=== PATIENT | female | born 1935 | race Caucasian/White ===

== ENCOUNTER 2023-09-09 16:27 | Inpatient (IN) | payer MEDICARE, OTHER, SELFPAY ==
--- NOTE | ~2023-09-09 | XR_ITS ---
EXAMINATION: XR BILATERAL HIPS WITH AP PELVIS CLINICAL INFORMATION: Unwitnessed fall, pain COMPARISON: None available. TECHNIQUE: AP view of the pelvis and single views of each hip were obtained. FINDINGS: No fracture. Hip joint spaces are maintained. Alignment is anatomic. Sacroiliac joints and pubic symphysis are normal. No abnormal soft tissue calcifications. XR/XR hips ALEXANDRA min 3V IMPRESSION: Normal pelvis and hips.
--- NOTE | ~2023-09-09 | CT_ITS ---
EXAMINATION: CT HEAD WITHOUT CONTRAST CLINICAL INFORMATION: Unwitnessed fall. COMPARISON: None. TECHNIQUE: Contiguous axial imaging was performed from the skullbase to vertex without intravenous administration of contrast. This CT examination was performed using dose optimization techniques as appropriate, variously including the following: *Automated exposure control *Adjustment of mA and/or kV according to patient size (this includes techniques or standardized protocols for targeted exams where dose is matched to indication/reason for exam; i.e. extremities or head) *Use of iterative reconstruction technique DLP: 755 mGy-cm. FINDINGS: There is no evidence of acute intracranial hemorrhage or territorial infarction. No abnormal mass effect or midline shift is seen. Morse to white matter differentiation is well preserved. No extra-axial fluid collections are identified. Moderate diffuse brain parenchymal volume loss is noted with commensurate ex vacuo dilatation of the ventricles. Mild chronic small vessel ischemic changes visible. The osseous structures and soft tissues are normal. The mastoid air cells and visualized portions of the paranasal sinuses are well aerated. CT/CT head/brain wo IV con IMPRESSION: No acute intracranial pathology. Moderate diffuse brain parenchymal volume loss and mild chronic white matter microangiopathy.
[2023-09-09 16:55] VITALS: BP 169/75; PULSE 99; RESP 20; TEMP 36.8; O2SAT 99
[2023-09-09 17:57] VITALS: BMI 21.9
[2023-09-09] MEDS: Divalproex Sodium 500 MG TABLET.DR PO (20:15)
[2023-09-09] MEDS: traZODone HCL 50 MG TABLET PO (20:15)
[2023-09-09] MEDS: Atorvastatin Calcium 20 MG TABLET PO (20:15)
[2023-09-09] MEDS: busPIRone HCl 5 MG TABLET PO (20:15)
[2023-09-09] MEDS: Sennosides 8.6 MG TABLET 17.2 MG PO (20:15)
[2023-09-09] MEDS: Mirtazapine 7.5 MG TABLET PO (20:15)
[2023-09-09 20:43] LABS: Creatinine Clr Calc Pharmacy 34.1; Estimated Glomerular Filt Rate 54
[2023-09-09] MEDS: cephALEXin 500 MG CAPSULE PO (21:57)
[2023-09-10] MEDS: hydrOXYzine HCL 25 MG TABLET PO (00:30)
[2023-09-10] MEDS: Omeprazole 20 MG CAPSULE.DR PO (06:12)
[2023-09-10] MEDS: cephALEXin 500 MG CAPSULE PO ×2 (06:17→17:27)
[2023-09-10 08:33] LABS: Alanine Aminotransferase 26 U/L (0-31); Albumin Level 3.7 g/dL (3.5-5.0); Alkaline Phosphatase 54 U/L (39-117); Anion Gap 14 (12-20); Aspartate Amino Transferase 31 U/L (5-31); Bilirubin Total 0.8 mg/dL (0.0-1.0); Blood Urea Nitrogen 22 mg/dL (9-16); Calcium 8.8 mg/dL (8.4-10.2); Carbon Dioxide 19 mmol/L (22-29); Chloride 112 mmol/L (96-108); Cholesterol 160 mg/dL (<200); Creatinine Clr Calc Pharmacy 34.4; Estimated Glomerular Filt Rate 54; Glucose Fasting 121 mg/dL (60-99); HDL Cholesterol 49 mg/dL (>40); LDL Cholesterol Calculated 86 mg/dL (<100); Potassium 3.7 mmol/L (3.3-5.1); Sodium 141 mmol/L (135-145); Total Protein 6.4 g/dL (6.5-8.0); Triglycerides 126 mg/dL (<150)
--- NOTE | 2023-09-10 11:29 | HO.PM.IMCN ---
History of Present Illness Data of Consult Service Date: 09/10/23 Primary Care Provider: Nonstaff Physician HPI Reason for consult: Admission H&P Pt is an 87-year-old female with a PMH significant for?unspecified dementia with behavioral disturbances who is admitted to [facility] for increased agitation. Patient comes from [facility] where she apparently eloped from her unit and was throwing supplies from a nursing cart. Originally brought to the ED at [facility] where she needed to be chemically and physically restrained due to agitation and aggressive behavior. In the ED patient workup was positive for UTI. Medical consult for admission H&P. Pt is alert and oriented to person only and incapable of providing accurate HPI. When asked if she had any medical complaints she said she had and accident with my baby that is getting worse, but will fix itself . Review of Systems Review of Systems: Unable to obtain due to patient's mentation [facility] Medical History (Updated 09/10/23 @ 13:27 by LANNY Olivera) Dementia, unspecified, with behavioral disturbance Social History Household Members: Unknown / Unable to assess Housing: Assisted Living Facility Do you presently have visiting nurse or other home services: Yes Patient Tobacco Use Status: Tobacco use Unknown Smoked in Last 30 Days: No Patient Interested in Nicotine Replacement: No Patient Given Instructions on How to Stop Smoking: No Second Hand Smoke Exposure: No Use of substances other than those prescribed or required for medical reasons: Unknown Last Used Substance: Unknown Currently Displaying Signs/Symptoms of Drug Intoxication Withdrawal: No Any prior treatment program specific to substance use: No Do you feel safe in your current relationship?: No Advance Directives: Yes Advance Directives Information Provided: No Advance Directives on File: Yes Advance Directives Date on File: 09/09/23 Do you have thoughts of harming others: None Do you have a plan to hurt others: No Plan Recently lost weight without trying: Unsure How much weight loss: Unsure Eating poorly because of decreased appetite: No Nutrition screen score: 4 Nutrition Risks: No Nutritional Risk Patient : No : No Poor oral hygiene: No Meds Allergies Allergy/AdvReac Type Severity Reaction Status Date / Time No Known Allergies Allergy Verified 09/09/23 17:46 Active Medications: Current Medications Acetaminophen (Acetaminophen 325 Mg Tablet) 650 mg PO Q6H PRN PRN Reason: Headache/Pain Mild Scale (1-3) Al Hydroxide/Mg Hydroxide (Magnesium Hydrox/Alum Hydrox 30 Ml Oral.Susp) 30 ml PO Q6H PRN PRN Reason: Heartburn/Nausea Atorvastatin Calcium (Atorvastatin Calcium 20 Mg Tablet) 20 mg PO BEDTIME [facility] Last Admin: 09/09/23 20:15 Dose: 20 mg Buspirone HCl (Buspirone Hcl 5 Mg Tablet) 5 mg PO TID [facility] Last Admin: 09/09/23 20:15 Dose: 5 mg Cephalexin HCl (Cephalexin 500 Mg Capsule) 500 mg PO Q8H [facility] Last Admin: 09/10/23 06:17 Dose: 500 mg Divalproex Sodium (Divalproex Sodium 500 Mg Tablet.) 500 mg PO BID [facility] Last Admin: 09/09/23 20:15 Dose: 500 mg Donepezil HCl (Donepezil Hcl 10 Mg Tablet) 10 mg PO DAILY [facility] Escitalopram Oxalate (Escitalopram Oxalate 5 Mg Tablet) 5 mg PO DAILY [facility] Hydroxyzine HCl (Hydroxyzine Hcl 25 Mg Tablet) 25 mg PO Q6H PRN PRN Reason: Anxiety Last Admin: 09/10/23 00:30 Dose: 25 mg Magnesium Hydroxide (Milk Of Magnesia 30 Ml Oral.Susp) 30 ml PO DAILY PRN PRN Reason: Constipation Mirtazapine (Mirtazapine 7.5 Mg Tablet) 7.5 mg PO BEDTIME [facility] Last Admin: 09/09/23 20:15 Dose: 7.5 mg Omeprazole (Omeprazole 20 Mg Capsule.) 20 mg PO DAILY@0630 [facility] Last Admin: 09/10/23 06:12 Dose: 20 mg Senna (Sennosides 8.6 Mg Tablet) 17.2 mg PO BEDTIME [facility] Last Admin: 09/09/23 20:15 Dose: 17.2 mg Tramadol HCl (Tramadol Hcl 50 Mg Tablet) 50 mg PO Q6H PRN PRN Reason: Pain, Moderate(Pain Scale 4-6) Trazodone HCl (Trazodone Hcl 50 Mg Tablet) 50 mg PO BEDTIME MRX1 PRN PRN Reason: Insomnia Last Admin: 09/09/23 20:15 Dose: 50 mg Physical Exam Vital Signs and Narrative: Vital Signs: Last Vital Signs Temp 98.2 F 09/09/23 16:55 Pulse 99 09/09/23 16:55 Resp 20 09/09/23 16:55 BP 169/75 H 09/09/23 16:55 Pulse Ox 99 09/09/23 16:55 O2 Del Method Room Air 09/09/23 16:55 BMI result Body Mass Index 21.9 General: AOx1, frail-looking, in wheelchair, in no acute distress Resp: CTA bilaterally CVS: S1, S2, RRR GI: +BS, NT, no distention Skin: Warm, dry. Areas of ecchymosis noted on hands and forearms bilaterally. Neuro: Cranial nerves II-XII grossly intact bilaterally. Motor grossly intact bilaterally. Global weakness noted, especially in lower extremities. Extremities: No edema Psych: Pleasantly confused Results Labs 09/10/23 07:48 Labs: Laboratory Results - last 24 hr 09/09/23 09/10/23 20:27 07:48 Anion Gap 14 Estim Creat Clear Calc 34.1 34.4 Estimated GFR 54 54 Fasting Glucose 121 H Calcium 8.8 Total Bilirubin 0.8 AST 31 ALT 26 Alkaline Phosphatase 54 Total Protein 6.4 L Albumin 3.7 Triglycerides 126 Cholesterol 160 LDL Cholesterol, Calc 86 HDL Cholesterol 49 Assessment and Plan (1) Medical clearance for psychiatric admission: Status: Acute Plan Pt is an 87-year-old female with a PMH significant for?unspecified dementia with behavioral disturbances who is admitted to [facility] for increased agitation. Patient comes from [facility] where she apparently eloped from her unit and was throwing supplies from a nursing cart. Originally brought to the ED at [facility] where she needed to be chemically and physically restrained due to agitation and aggressive behavior. In the ED patient workup was positive for UTI. Medical consult for admission H&P. Pt is alert and oriented to person only and incapable of providing accurate HPI. Mood disorder Plan as per psychiatry UTI UA positive for UTI at [facility] Thank you for allowing us to participate in the care of this patient. Signing off at this time. Please re-consult if any acute complaints or issues arise.
[2023-09-10 11:45] VITALS: BP 152/67; PULSE 64; RESP 18; TEMP 35.9; O2SAT 98
[2023-09-10] MEDS: Escitalopram Oxalate 5 MG TABLET PO (11:53)
[2023-09-10] MEDS: Divalproex Sodium 500 MG TABLET.DR PO ×2 (11:53→20:24)
[2023-09-10] MEDS: Donepezil HCl 10 MG TABLET PO (11:53)
[2023-09-10] MEDS: busPIRone HCl 5 MG TABLET PO ×3 (11:53→20:24)
--- NOTE | 2023-09-10 12:24 | PC.ADMIT ---
Late entry from 09/09/23 pt arrived on unit via stretcher at 1650. Place on 12B by Dr Alex. Patient alert to self only, dressed in hospital attire. Appears stated age and well groomed. Anxious affect/grossly confused. Admitting diagnosis is Hx of dementia with increased agitation. Precipitating evenat at nursing facilty was increased agitation, attempting to elope and throwing nursing supplies. Pt son reports patient has been declining for the past year. On admission patient presented as anxious but cooperative. skin check done. VSS. Patient change into clean johnnies. placed on 1:1 for safety and bed alarm on.
[2023-09-10] MEDS: Acetaminophen 325 MG TABLET 650 MG PO (16:51)
[2023-09-10 19:30] VITALS: BP 147/67; PULSE 81; RESP 17; TEMP 36.4; O2SAT 96
[2023-09-10] MEDS: Mirtazapine 7.5 MG TABLET PO (20:24)
[2023-09-10] MEDS: Atorvastatin Calcium 20 MG TABLET PO (20:24)
[2023-09-10] MEDS: traZODone HCL 50 MG TABLET PO (20:24)
[2023-09-10] MEDS: Sennosides 8.6 MG TABLET 17.2 MG PO (20:24)
--- NOTE | 2023-09-10 21:33 | HO.PSYADMNOT ---
HPI Date of Service: 09/10/23 Chief Complaint: Unspecified anxiety disorder Sources of Information: patient interviewed, chart reviewed and crisis/core team assessment reviewed HPI Subjective Notes: Section 12B Narrative: Patient is an 87 year old female with history of dementia, no prior MH issues noted, who was transported from [facility] for IP admission. Per initial assessment, patient has been living at intermediate [facility] for the past year. She was sent to ER due worsening agitation and emotional lability, had been hostile toward staff throwing items at them and had absconded from her unit. She is noted to have recently been started on citalopram 10 mg for behavioral changes, but unclear when this was. She had an initial medical work-up in the ED with a largely unremarkable physical examination and lab work CBC, BMP significant for elevated BUN 28, creatinine 1.4 and Cl 111, and low bicarb 18 as well as anemia 10.7/ 32.0 and was started on Keflex for UTI. She was also noted to have experienced increased agitation when she first arrived at [facility] ED, threatening to bite staff and hitting staff, ripping things off wall, not redirectable and required chemical and physical restraints until she could be evaluated for possible [facility] admission. She has not been able to provide much history, it was noted that she currently has 4 children, and her son Edison is involved in her care. Patient seen this morning, she's on a 1:1 with sitter present. Appears in no acute distress, lying comfortably in bed. Is alert and oriented to self. Denies any pain issues. Says she does not know what is happening. Reports mood as I cant tell and when asked about how she slet last night says I just laid on the ground but in fact was in bed all night asleep. She denies any pain issues. She was pleasant but confused and unable to provide much history. Medical Evaluation Reviewed: Hospitalist Severino Pending [facility] Medical History (Updated 09/13/23 @ 06:53 by Lesa Leiva MD) Dementia, unspecified, with behavioral disturbance Narrative: Family History: unable to obtain Social History: unable to obtain Substance History: unable to obtain Trauma History: unable to obtain Diagnostics Vital Signs (24Hr): Vital Signs - 24 hr 09/10/23 11:45 09/10/23 19:30 Temperature 96.6 F L 97.6 F Pulse Rate 64 81 Respiratory Rate 18 17 Blood Pressure 152/67 H 147/67 H Pulse Oximetry 98 96 Oxygen Delivery Method Room Air Room Air BMI result Body Mass Index 21.9 Labs 09/10/23 07:48 Labs: Laboratory Results - last 48 hr 09/09/23 09/10/23 20:27 07:48 Sodium 141 Potassium 3.7 Chloride 112 H Carbon Dioxide 19 L Anion Gap 14 BUN 22 H Creatinine 0.98 0.97 Estim Creat Clear Calc 34.1 34.4 Estimated GFR 54 54 Fasting Glucose 121 H Calcium 8.8 Total Bilirubin 0.8 AST 31 ALT 26 Alkaline Phosphatase 54 Total Protein 6.4 L Albumin 3.7 Triglycerides 126 Cholesterol 160 LDL Cholesterol, Calc 86 HDL Cholesterol 49 Meds/Allergies Allergies Allergies Allergy/AdvReac Type Severity Reaction Status Date / Time No Known Allergies Allergy Verified 09/09/23 17:46 Assessment & Plan Assessment & Plan (1) Anxiety state, unspecified: Status: Acute Code(s): F41.1 - Generalized anxiety disorder (2) Dementia, unspecified, with behavioral disturbance: Status: Acute Code(s): F03.918 - Unspecified dementia, unspecified severity, with other behavioral disturbance (3) Medical clearance for psychiatric admission: Status: Acute Code(s): Z00.8 - Encounter for other general examination Plan 1. Continue to gather collateral information we will try to gather information from the facility and her sister. 2. Continue with medication reconciliation antidepressants. 3. Will need a medical workup 4. The patient is able to contract for safety so 15 minutes checks. 5. Reassessment with results Patient educated on: diagnosis Reason for continued inpatient stay Substantial Risk for: inability to function, rapid decompensation and med/psych decompensation Statement Statement: I have reviewed the history and physical and performed a pertinent examination on my patient. No changes have occurred unless specified. If the History and Physical was not performed prior to admission, the Hospitalist's service will be consulted for completing the admission physical. Time Spent With Patient Time: Total time managing care of this patient today ____ minutes.
[2023-09-11] MEDS: Omeprazole 20 MG CAPSULE.DR PO (05:40)
[2023-09-11] MEDS: cephALEXin 500 MG CAPSULE PO ×2 (05:40→18:28)
[2023-09-11 12:14] VITALS: BP 138/65; PULSE 72; RESP 20; TEMP 36.1; O2SAT 94
[2023-09-11] MEDS: Donepezil HCl 10 MG TABLET PO (12:16)
[2023-09-11] MEDS: busPIRone HCl 5 MG TABLET PO ×3 (12:16→20:36)
[2023-09-11] MEDS: Escitalopram Oxalate 5 MG TABLET PO (12:16)
[2023-09-11] MEDS: OLANZapine ODT 10 MG TAB.RAPDIS 5 MG TRANSLINGU ×2 (14:21→18:28)
[2023-09-11 18:00] VITALS: BP 144/68; PULSE 62; RESP 18; TEMP 36.1; O2SAT 96
[2023-09-11] MEDS: hydrOXYzine HCL 25 MG TABLET PO (20:35)
[2023-09-11] MEDS: Divalproex Sodium Sprinkles 125 MG CAP.DR.SPR 500 MG PO (20:36)
[2023-09-11] MEDS: Atorvastatin Calcium 20 MG TABLET PO (20:36)
[2023-09-11] MEDS: Sennosides 8.6 MG TABLET 17.2 MG PO (20:36)
[2023-09-11] MEDS: Mirtazapine 7.5 MG TABLET PO (20:36)
[2023-09-11] MEDS: traZODone HCL 50 MG TABLET PO (20:36)
--- NOTE | 2023-09-11 23:31 | HO.PSYCHPN ---
Subjective Subjective Date of Service: 09/11/23 Reason For Visit: Unspecified anxiety disorder Subjective Notes: Section 12B Healthcare Proxy: Yes Interim History: Met with patient. Reviewed with nursing staff. Patient had been agitated earlier this morning. She was found lying in bed awake. She had been given a doll this morning which apparently helped with the outburst and was currently cradling it. She reports she is pretty good this morning. She is lying calmly, appears comfortable. She denies any issues, but says until someone showed up and was telling me what to do . Pleasant but confused. Could not answer most questions. Oriented to self only. Medication Compliance: Yes Side effects from medications: No Review of Systems Acute medical concerns: No Review of Systems Review of Systems Unable to obtain due to patient's mentation Mental Status Exam Mental Status Exam Narrative: Patient Appearance: Appropriate Patient Orientation: Person Level of Consciousness: Awake, Alert Patient Behavior: Guarded and Passive, agitated Mood Description: alexithymic Affect Description: Constricted Patient Cognition Impaired: Yes Ability to Follow Directions: Fair Speech Pattern: Clear Hallucinations: None Delusions: Not Present Thought Process: Distracted and Slowed Thinking Thought Content: positive for [place] and positive for Poverty of Content Judgment: limited Diagnostics Vital Signs (24Hr): Vital Signs - 24 hr 09/11/23 12:14 09/11/23 18:00 Temperature 97.0 F 97 F Pulse Rate 72 62 Respiratory Rate 20 18 Blood Pressure 138/65 144/68 H Pulse Oximetry 94 96 Oxygen Delivery Method Room Air Room Air BMI result Body Mass Index 21.9 Labs 09/10/23 07:48 Labs: Laboratory Results - last 48 hr 09/10/23 07:48 Sodium 141 Potassium 3.7 Chloride 112 H Carbon Dioxide 19 L Anion Gap 14 BUN 22 H Creatinine 0.97 Estim Creat Clear Calc 34.4 Estimated GFR 54 Fasting Glucose 121 H Calcium 8.8 Total Bilirubin 0.8 AST 31 ALT 26 Alkaline Phosphatase 54 Total Protein 6.4 L Albumin 3.7 Triglycerides 126 Cholesterol 160 LDL Cholesterol, Calc 86 HDL Cholesterol 49 Medications Medications Current Medications Acetaminophen (Acetaminophen 325 Mg Tablet) 650 mg PO Q6H PRN PRN Reason: Headache/Pain Mild Scale (1-3) Last Admin: 09/10/23 16:51 Dose: 650 mg Al Hydroxide/Mg Hydroxide (Magnesium Hydrox/Alum Hydrox 30 Ml Oral.Susp) 30 ml PO Q6H PRN PRN Reason: Heartburn/Nausea Atorvastatin Calcium (Atorvastatin Calcium 20 Mg Tablet) 20 mg PO BEDTIME [facility] Last Admin: 09/11/23 20:36 Dose: 20 mg Buspirone HCl (Buspirone Hcl 5 Mg Tablet) 5 mg PO TID [facility] Last Admin: 09/11/23 20:36 Dose: 5 mg Cephalexin HCl (Cephalexin 500 Mg Capsule) 500 mg PO Q12H [facility] Last Admin: 09/11/23 18:28 Dose: 500 mg Divalproex Sodium (Divalproex Sodium Sprinkles 125 Mg Cap.Spr) 500 mg PO BID [facility] Last Admin: 09/11/23 20:36 Dose: 500 mg Donepezil HCl (Donepezil Hcl 10 Mg Tablet) 10 mg PO DAILY [facility] Last Admin: 09/11/23 12:16 Dose: 10 mg Escitalopram Oxalate (Escitalopram Oxalate 5 Mg Tablet) 5 mg PO DAILY [facility] Last Admin: 09/11/23 12:16 Dose: 5 mg Hydroxyzine HCl (Hydroxyzine Hcl 25 Mg Tablet) 25 mg PO Q6H PRN PRN Reason: Anxiety Last Admin: 09/11/23 20:35 Dose: 25 mg Magnesium Hydroxide (Milk Of Magnesia 30 Ml Oral.Susp) 30 ml PO DAILY PRN PRN Reason: Constipation Melatonin (Melatonin 3 Mg Tablet) 6 mg PO BEDTIME PRN PRN Reason: Sleep Mirtazapine (Mirtazapine 7.5 Mg Tablet) 7.5 mg PO BEDTIME [facility] Last Admin: 09/11/23 20:36 Dose: 7.5 mg Olanzapine (Olanzapine Odt 10 Mg Tab.Rapdis) 5 mg TRANSLINGU BID PRN PRN Reason: anxiety/restlessness Last Admin: 09/11/23 18:28 Dose: 5 mg Omeprazole (Omeprazole 20 Mg Capsule.) 20 mg PO DAILY@0630 [facility] Last Admin: 09/11/23 05:40 Dose: 20 mg Senna (Sennosides 8.6 Mg Tablet) 17.2 mg PO BEDTIME [facility] Last Admin: 09/11/23 20:36 Dose: 17.2 mg Tramadol HCl (Tramadol Hcl 50 Mg Tablet) 50 mg PO Q6H PRN PRN Reason: Pain, Moderate(Pain Scale 4-6) Trazodone HCl (Trazodone Hcl 50 Mg Tablet) 50 mg PO BEDTIME MRX1 PRN PRN Reason: Insomnia Last Admin: 09/11/23 20:36 Dose: 50 mg Allergies Allergies Allergy/AdvReac Type Severity Reaction Status Date / Time No Known Allergies Allergy Verified 09/09/23 17:46 Assessment & Plan Assessment & Plan (1) Anxiety state, unspecified: Status: Acute Code(s): F41.1 - Generalized anxiety disorder (2) Dementia, unspecified, with behavioral disturbance: Status: Acute Code(s): F03.918 - Unspecified dementia, unspecified severity, with other behavioral disturbance (3) Medical clearance for psychiatric admission: Status: Acute Code(s): Z00.8 - Encounter for other general examination Plan Pt is an 87-year-old female with a PMH significant for?unspecified dementia with behavioral disturbances who is admitted to [facility] for increased agitation. Patient comes from [facility] where she apparently eloped from her unit and was throwing supplies from a nursing cart. Originally brought to the ED at [facility] where she needed to be chemically and physically restrained due to agitation and aggressive behavior. In the ED patient workup was positive for UTI. Medical consult for admission H&P. Pt is alert and oriented to person only and incapable of providing accurate HPI. 1. Continue to gather collateral information we will try to gather information from the facility and her sister. 2. Continue with medication reconciliation antidepressants. 3. Will need a medical workup 4. The patient is able to contract for safety so 15 minutes checks. 5. Reassessment with results. Patient educated on: diagnosis Reason for continued inpatient stay Substantial Risk for: inability to function, rapid decompensation and med/psych decompensation Time Spent With Patient Time: Total time managing care of this patient today ____ minutes.
[2023-09-12] MEDS: cephALEXin 500 MG CAPSULE PO ×2 (06:04→20:10)
[2023-09-12] MEDS: Omeprazole 20 MG CAPSULE.DR PO (06:04)
--- NOTE | 2023-09-12 08:24 | P.PNPSI_ITS ---
Subjective Subjective Date of Service: 09/12/23 Reason For Visit: Unspecified anxiety disorder Subjective Notes: Conditional Voluntary Interim History: Pt had disrupted night due to increase paranoid ideas, thinking staff was trying to kill her refusing medications thinking they are poisoned. When this sign writer letterer or painter attempted to see her she was sleeping. VS stable. combative at times when increase confusion. Diagnostics Vital Signs (24Hr): Vital Signs - 24 hr 09/11/23 12:14 09/11/23 18:00 Temperature 97.0 F 97 F Pulse Rate 72 62 Respiratory Rate 20 18 Blood Pressure 138/65 144/68 H Pulse Oximetry 94 96 Oxygen Delivery Method Room Air Room Air BMI result Body Mass Index 21.9 Labs 09/10/23 07:48 Labs: Laboratory Results - last 48 hr 09/10/23 07:48 Sodium 141 Potassium 3.7 Chloride 112 H Carbon Dioxide 19 L Anion Gap 14 BUN 22 H Creatinine 0.97 Estim Creat Clear Calc 34.4 Estimated GFR 54 Fasting Glucose 121 H Calcium 8.8 Total Bilirubin 0.8 AST 31 ALT 26 Alkaline Phosphatase 54 Total Protein 6.4 L Albumin 3.7 Triglycerides 126 Cholesterol 160 LDL Cholesterol, Calc 86 HDL Cholesterol 49 Medications Medications Current Medications Acetaminophen (Acetaminophen 325 Mg Tablet) 650 mg PO Q6H PRN PRN Reason: Headache/Pain Mild Scale (1-3) Last Admin: 09/10/23 16:51 Dose: 650 mg Al Hydroxide/Mg Hydroxide (Magnesium Hydrox/Alum Hydrox 30 Ml Oral.Susp) 30 ml PO Q6H PRN PRN Reason: Heartburn/Nausea Atorvastatin Calcium (Atorvastatin Calcium 20 Mg Tablet) 20 mg PO BEDTIME [facility] Last Admin: 09/11/23 20:36 Dose: 20 mg Buspirone HCl (Buspirone Hcl 5 Mg Tablet) 5 mg PO TID [facility] Last Admin: 09/11/23 20:36 Dose: 5 mg Cephalexin HCl (Cephalexin 500 Mg Capsule) 500 mg PO Q12H [facility] Last Admin: 09/12/23 06:04 Dose: 500 mg Divalproex Sodium (Divalproex Sodium Sprinkles 125 Mg ) 500 mg PO BID [facility] Last Admin: 09/11/23 20:36 Dose: 500 mg Donepezil HCl (Donepezil Hcl 10 Mg Tablet) 10 mg PO DAILY [facility] Last Admin: 09/11/23 12:16 Dose: 10 mg Escitalopram Oxalate (Escitalopram Oxalate 5 Mg Tablet) 5 mg PO DAILY [facility] Last Admin: 09/11/23 12:16 Dose: 5 mg Hydroxyzine HCl (Hydroxyzine Hcl 25 Mg Tablet) 25 mg PO Q6H PRN PRN Reason: Anxiety Last Admin: 09/11/23 20:35 Dose: 25 mg Magnesium Hydroxide (Milk Of Magnesia 30 Ml Oral.Susp) 30 ml PO DAILY PRN PRN Reason: Constipation Melatonin (Melatonin 3 Mg Tablet) 6 mg PO BEDTIME PRN PRN Reason: Sleep Mirtazapine (Mirtazapine 7.5 Mg Tablet) 7.5 mg PO BEDTIME [facility] Last Admin: 09/11/23 20:36 Dose: 7.5 mg Olanzapine (Olanzapine Odt 10 Mg Tab.Rapdis) 5 mg TRANSLINGU BID PRN PRN Reason: anxiety/restlessness Last Admin: 09/11/23 18:28 Dose: 5 mg Omeprazole (Omeprazole 20 Mg Capsule.Dr) 20 mg PO DAILY@0630 [facility] Last Admin: 09/12/23 06:04 Dose: 20 mg Senna (Sennosides 8.6 Mg Tablet) 17.2 mg PO BEDTIME [facility] Last Admin: 09/11/23 20:36 Dose: 17.2 mg Tramadol HCl (Tramadol Hcl 50 Mg Tablet) 50 mg PO Q6H PRN PRN Reason: Pain, Moderate(Pain Scale 4-6) Trazodone HCl (Trazodone Hcl 50 Mg Tablet) 50 mg PO BEDTIME MRX1 PRN PRN Reason: Insomnia Last Admin: 09/11/23 20:36 Dose: 50 mg Allergies Allergies Allergy/AdvReac Type Severity Reaction Status Date / Time No Known Allergies Allergy Verified 09/09/23 17:46 Assessment & Plan Assessment & Plan (1) Medical clearance for psychiatric admission: Status: Acute Code(s): Z00.8 - Encounter for other general examination Plan Pt is an 87-year-old female with a PMH significant for?unspecified dementia with behavioral disturbances who is admitted to [facility] for increased agitation. Patient comes from [facility] where she apparently eloped from her unit and was throwing supplies from a nursing cart. Originally brought to the ED at [facility] where she needed to be chemically and physically restrained due to agitation and aggressive behavior. In the ED patient workup was positive for UTI. Medical consult for admission H&P. Pt is alert and oriented to person only and incapable of providing accurate HPI. PLAN 09/11 continue tx. Reason for continued inpatient stay Substantial Risk for: inability to function Time Spent With Patient Time: Total time managing care of this patient today ____ minutes.
[2023-09-12] MEDS: busPIRone HCl 5 MG TABLET PO ×2 (12:34→20:10)
[2023-09-12] MEDS: Donepezil HCl 10 MG TABLET PO (12:34)
[2023-09-12] MEDS: Divalproex Sodium Sprinkles 125 MG CAP.DR.SPR 500 MG PO ×2 (12:34→20:09)
[2023-09-12] MEDS: Escitalopram Oxalate 5 MG TABLET PO (12:34)
[2023-09-12] MEDS: OLANZapine ODT 10 MG TAB.RAPDIS 5 MG TRANSLINGU (12:35)
[2023-09-12 17:15] VITALS: BP 174/69; PULSE 80; RESP 16; TEMP 36.4; O2SAT 96
[2023-09-12] MEDS: OLANZapine 10 MG VIAL 5 MG IM (17:22)
[2023-09-12] MEDS: LORazepam 2 MG/ML VIAL 1 MG IM (17:24)
--- NOTE | 2023-09-12 17:45 | PM.EVENT ---
Event Note Date of Service: 09/12/23 Event Note: 87 year old female with history of dementia admitted to geriatric psychiatry with request to hospitalist service to evaluate patient post chemical restraint. Per nursing staff the patient has been refusing all meds and has been very agitated and aggressive. Attempts have been made to redirect the patient however she has continued to become agitated aggressive. She is on 1:1 due to gait instability and has been trying to get out of bed putting herself at risk. She has also been attempting to hit and bite staff. At 1712 psychiatrist ordered 5mg olanzepine and 1mg ativan which was administered by nursing staff with good effect. On exam, patient laying calming in her bed, in no acute distress. respirations are even and unlabored. She is pleasantly confused which is consistent with baseline. Will sign off at this time. Please reach out for any questions, concerns, or acute medical issues. Time Spent With Patient Time: Total time managing care of this patient today ____ minutes.
--- NOTE | 2023-09-12 18:50 | PC.NURSE ---
Shakira was agitated this evening and believed staff were trying to kill her. This writer producer attempted to admisiter prn zyprexa 5mg p.o. and Shakira hit medications out of this writer producer's hand. She began hitting and kicking and attempting to harm staff. She was placed in a 1 minute physical hold from 17:12-17:13 and was given zyprexa 5mg IM and ativan 1mg IM.
[2023-09-12] MEDS: Melatonin 3 MG TABLET 6 MG PO (20:09)
[2023-09-12] MEDS: Sennosides 8.6 MG TABLET 17.2 MG PO (20:10)
[2023-09-12] MEDS: traZODone HCL 50 MG TABLET PO (20:10)
[2023-09-12] MEDS: Atorvastatin Calcium 20 MG TABLET PO (20:10)
[2023-09-12] MEDS: Mirtazapine 7.5 MG TABLET PO (20:10)
[2023-09-12] MEDS: hydrOXYzine HCL 25 MG TABLET PO (20:10)
[2023-09-13] MEDS: Omeprazole 20 MG CAPSULE.DR PO (06:01)
[2023-09-13] MEDS: cephALEXin 500 MG CAPSULE PO ×2 (06:01→17:21)
[2023-09-13 09:29] VITALS: BP 140/65; PULSE 73; RESP 16; TEMP 36.2; O2SAT 97
[2023-09-13] MEDS: Donepezil HCl 10 MG TABLET PO (09:31)
[2023-09-13] MEDS: Divalproex Sodium Sprinkles 125 MG CAP.DR.SPR 500 MG PO ×2 (09:31→19:45)
[2023-09-13] MEDS: busPIRone HCl 5 MG TABLET PO (09:31)
[2023-09-13] MEDS: Escitalopram Oxalate 5 MG TABLET PO (09:31)
--- NOTE | 2023-09-13 10:07 | HO.PSYCHPN ---
Subjective Subjective Date of Service: 09/13/23 Reason For Visit: Unspecified anxiety disorder Subjective Notes: Conditional Voluntary Healthcare Proxy: Yes Interim History: Pt calmer today. She slept most of the day. No combative behaviors. She is in a wheelchair. 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 She asks what is the schedule for work as she does not want to be late. She asks me if I also work here. She reports she has to return home because she just had a baby. She also reports her oldest child is 14 and they are waiting for her. She denies any physical discomfort. Not oriented to place or situation. Review of Systems Review of Systems Unable to obtain due to patient's mentation Mental Status Exam Mental Status Exam Narrative: Patient Appearance: Appropriate Patient Orientation: Person Level of Consciousness: Awake, Alert Patient Behavior: Guarded and Passive, agitated Mood Description: good Affect Description: Constricted Patient Cognition Impaired: Yes Ability to Follow Directions: Fair Speech Pattern: Clear Hallucinations: None Delusions: Not Present Thought Process: Distracted and Slowed Thinking Thought Content: positive for [place] and positive for Poverty of Content Judgment: limited Diagnostics Vital Signs (24Hr): Vital Signs - 24 hr 09/12/23 17:15 09/13/23 09:29 Temperature 97.6 F 97.2 F Pulse Rate 80 73 Respiratory Rate 16 16 Blood Pressure 174/69 H 140/65 H Pulse Oximetry 96 97 Oxygen Delivery Method Room Air Room Air BMI result Body Mass Index 21.9 Labs 09/10/23 07:48 Medications Medications Current Medications Acetaminophen (Acetaminophen 325 Mg Tablet) 650 mg PO Q6H PRN PRN Reason: Headache/Pain Mild Scale (1-3) Last Admin: 09/10/23 16:51 Dose: 650 mg Al Hydroxide/Mg Hydroxide (Magnesium Hydrox/Alum Hydrox 30 Ml Oral.Susp) 30 ml PO Q6H PRN PRN Reason: Heartburn/Nausea Atorvastatin Calcium (Atorvastatin Calcium 20 Mg Tablet) 20 mg PO BEDTIME [facility] Last Admin: 09/12/23 20:10 Dose: 20 mg Buspirone HCl (Buspirone Hcl 5 Mg Tablet) 5 mg PO TID [facility] Last Admin: 09/13/23 09:31 Dose: 5 mg Cephalexin HCl (Cephalexin 500 Mg Capsule) 500 mg PO Q12H [facility] Last Admin: 09/13/23 06:01 Dose: 500 mg Divalproex Sodium (Divalproex Sodium Sprinkles 125 Mg Cap.) 500 mg PO BID [facility] Last Admin: 09/13/23 09:31 Dose: 500 mg Donepezil HCl (Donepezil Hcl 10 Mg Tablet) 10 mg PO DAILY [facility] Last Admin: 09/13/23 09:31 Dose: 10 mg Escitalopram Oxalate (Escitalopram Oxalate 5 Mg Tablet) 5 mg PO DAILY [facility] Last Admin: 09/13/23 09:31 Dose: 5 mg Hydroxyzine HCl (Hydroxyzine Hcl 25 Mg Tablet) 25 mg PO Q6H PRN PRN Reason: Anxiety Last Admin: 09/12/23 20:10 Dose: 25 mg Magnesium Hydroxide (Milk Of Magnesia 30 Ml Oral.Susp) 30 ml PO DAILY PRN PRN Reason: Constipation Melatonin (Melatonin 3 Mg Tablet) 6 mg PO BEDTIME PRN PRN Reason: Sleep Last Admin: 09/12/23 20:09 Dose: 6 mg Mirtazapine (Mirtazapine 7.5 Mg Tablet) 7.5 mg PO BEDTIME [facility] Last Admin: 09/12/23 20:10 Dose: 7.5 mg Olanzapine (Olanzapine Odt 10 Mg Tab.Rapdis) 5 mg TRANSLINGU Q6H PRN PRN Reason: agitation Omeprazole (Omeprazole 20 Mg Capsule.) 20 mg PO DAILY@0630 [facility] Last Admin: 09/13/23 06:01 Dose: 20 mg Senna (Sennosides 8.6 Mg Tablet) 17.2 mg PO BEDTIME [facility] Last Admin: 09/12/23 20:10 Dose: 17.2 mg Tramadol HCl (Tramadol Hcl 50 Mg Tablet) 50 mg PO Q6H PRN PRN Reason: Pain, Moderate(Pain Scale 4-6) Trazodone HCl (Trazodone Hcl 50 Mg Tablet) 50 mg PO BEDTIME MRX1 PRN PRN Reason: Insomnia Last Admin: 09/12/23 20:10 Dose: 50 mg Allergies Allergies Allergy/AdvReac Type Severity Reaction Status Date / Time No Known Allergies Allergy Verified 09/09/23 17:46 Assessment & Plan Assessment & Plan (1) Major neurocognitive disorder due to Alzheimer's disease, with behavioral disturbance: Status: Acute Code(s): G30.9 - Alzheimer's disease, unspecified; F02.818 - Dementia in other diseases classified elsewhere, unspecified severity, with other behavioral disturbance Plan continue current medications obtain collateral information Reason for continued inpatient stay Substantial Risk for: inability to function Time Spent With Patient Time: Total time managing care of this patient today ____ minutes.
[2023-09-13] MEDS: hydrOXYzine HCL 25 MG TABLET PO ×2 (12:37→19:47)
[2023-09-13 18:00] VITALS: BP 176/79; PULSE 66; RESP 18; TEMP 36; O2SAT 98
[2023-09-13] MEDS: Atorvastatin Calcium 20 MG TABLET PO (19:45)
[2023-09-13] MEDS: Melatonin 3 MG TABLET 6 MG PO (19:46)
[2023-09-13] MEDS: Mirtazapine 7.5 MG TABLET PO (19:46)
[2023-09-13] MEDS: traZODone HCL 50 MG TABLET PO (19:47)
[2023-09-13] MEDS: OLANZapine ODT 10 MG TAB.RAPDIS 5 MG TRANSLINGU (19:47)
[2023-09-14] MEDS: cephALEXin 500 MG CAPSULE PO ×2 (06:07→18:00)
[2023-09-14] MEDS: Omeprazole 20 MG CAPSULE.DR PO (06:07)
[2023-09-14 08:00] VITALS: BP 121/59; PULSE 60; RESP 18; TEMP 36.2; O2SAT 96
[2023-09-14] MEDS: Divalproex Sodium Sprinkles 125 MG CAP.DR.SPR 500 MG PO ×2 (08:25→23:20)
[2023-09-14] MEDS: Escitalopram Oxalate 5 MG TABLET PO (08:25)
[2023-09-14] MEDS: Donepezil HCl 10 MG TABLET PO (08:25)
[2023-09-14] MEDS: amLODIPine Besylate 2.5 MG TABLET PO (11:02)
[2023-09-14] MEDS: hydrOXYzine HCL 25 MG TABLET PO (11:02)
[2023-09-14] MEDS: clonazePAM 0.5 MG TABLET PO (11:47)
[2023-09-14 14:11] LABS: Ammonia 23 umol/L (13-55)
--- NOTE | 2023-09-14 16:49 | HO.PSYCHPN ---
Subjective Subjective Date of Service: 09/14/23 Reason For Visit: Unspecified anxiety disorder Subjective Notes: Conditional Voluntary Healthcare Proxy: Yes Interim History: Pt slept through the night. She was presenting as very anxious and restless in wheelchair. She had one dose of clonazepam which did seem to help with dysphoric mood. VS stable- SBP elevated, restarted on amlodipine, may have to monitor. continue one to one. Review of Systems Review of Systems Unable to obtain due to patient's mentation Mental Status Exam Mental Status Exam Narrative: Patient Appearance: Appropriate Patient Orientation: Person Level of Consciousness: Awake, Alert Patient Behavior: Guarded and Passive, agitated Mood Description: good Affect Description: Constricted Patient Cognition Impaired: Yes Ability to Follow Directions: Fair Speech Pattern: Clear Hallucinations: None Delusions: Not Present Thought Process: Distracted and Slowed Thinking Thought Content: positive for [place] and positive for Poverty of Content Judgment: limited Diagnostics Vital Signs (24Hr): Vital Signs - 24 hr 09/13/23 18:00 09/14/23 08:00 Temperature 96.8 F 97.1 F Pulse Rate 66 60 Respiratory Rate 18 18 Blood Pressure 176/79 H 121/59 L Pulse Oximetry 98 96 Oxygen Delivery Method Room Air Room Air BMI result Body Mass Index 21.9 Labs 09/10/23 07:48 Labs: Laboratory Results - last 48 hr 09/14/23 13:42 Ammonia 23 Medications Medications Current Medications Acetaminophen (Acetaminophen 325 Mg Tablet) 650 mg PO Q6H PRN PRN Reason: Headache/Pain Mild Scale (1-3) Last Admin: 09/10/23 16:51 Dose: 650 mg Al Hydroxide/Mg Hydroxide (Magnesium Hydrox/Alum Hydrox 30 Ml Oral.Susp) 30 ml PO Q6H PRN PRN Reason: Heartburn/Nausea Amlodipine Besylate (Amlodipine Besylate 2.5 Mg Tablet) 2.5 mg PO DAILY [facility]; Protocol Last Admin: 09/14/23 11:02 Dose: 2.5 mg Atorvastatin Calcium (Atorvastatin Calcium 20 Mg Tablet) 20 mg PO BEDTIME [facility] Last Admin: 09/13/23 19:45 Dose: 20 mg Cephalexin HCl (Cephalexin 500 Mg Capsule) 500 mg PO Q12H [facility] Stop: 09/17/23 23:59 Last Admin: 09/14/23 06:07 Dose: 500 mg Divalproex Sodium (Divalproex Sodium Sprinkles 125 Mg Cap.Dr.Spr) 500 mg PO BID [facility] Last Admin: 09/14/23 08:25 Dose: 500 mg Donepezil HCl (Donepezil Hcl 10 Mg Tablet) 10 mg PO DAILY [facility] Last Admin: 09/14/23 08:25 Dose: 10 mg Hydroxyzine HCl (Hydroxyzine Hcl 25 Mg Tablet) 25 mg PO Q6H PRN PRN Reason: Anxiety Last Admin: 09/14/23 11:02 Dose: 25 mg Magnesium Hydroxide (Milk Of Magnesia 30 Ml Oral.Susp) 30 ml PO DAILY PRN PRN Reason: Constipation Melatonin (Melatonin 3 Mg Tablet) 6 mg PO BEDTIME PRN PRN Reason: Sleep Last Admin: 09/13/23 19:46 Dose: 6 mg Mirtazapine (Mirtazapine 15 Mg Tablet) 15 mg PO BEDTIME [facility] Olanzapine (Olanzapine Odt 10 Mg Tab.Rapdis) 5 mg TRANSLINGU Q6H PRN PRN Reason: agitation Last Admin: 09/13/23 19:47 Dose: 5 mg Omeprazole (Omeprazole 20 Mg ) 20 mg PO DAILY@0630 [facility] Last Admin: 09/14/23 06:07 Dose: 20 mg Senna (Sennosides 8.6 Mg Tablet) 17.2 mg PO BEDTIME [facility] Last Admin: 09/13/23 19:46 Dose: Not Given Tramadol HCl (Tramadol Hcl 50 Mg Tablet) 50 mg PO Q6H PRN PRN Reason: Pain, Moderate(Pain Scale 4-6) Trazodone HCl (Trazodone Hcl 50 Mg Tablet) 50 mg PO BEDTIME PRN PRN Reason: Insomnia Allergies Allergies Allergy/AdvReac Type Severity Reaction Status Date / Time No Known Allergies Allergy Verified 09/09/23 17:46 Assessment & Plan Assessment & Plan (1) Major neurocognitive disorder due to Alzheimer's disease, with behavioral disturbance: Status: Acute Code(s): G30.9 - Alzheimer's disease, unspecified; F02.818 - Dementia in other diseases classified elsewhere, unspecified severity, with other behavioral disturbance Plan 1. schedule clonazepam 0.25mg po BID- monitor oversedation and increase confusion. plan to [id number] med regimen- d/c aricept at this point benefit is unclear given how advanced dementia is. per son luis has been inefective for dysphoric, tearful/anxious mood. will titrate remeron also to help with mood. Reason for continued inpatient stay Substantial Risk for: inability to function Time Spent With Patient Time: Total time managing care of this patient today ____ minutes.
[2023-09-14 20:00] VITALS: BP 167/72; PULSE 72; RESP 16; TEMP 36.1; O2SAT 96
[2023-09-14] MEDS: Atorvastatin Calcium 20 MG TABLET PO (23:20)
[2023-09-14] MEDS: Sennosides 8.6 MG TABLET 17.2 MG PO (23:20)
[2023-09-14] MEDS: traZODone HCL 50 MG TABLET PO (23:20)
[2023-09-14] MEDS: Mirtazapine 15 MG TABLET PO (23:21)
[2023-09-15] MEDS: cephALEXin 500 MG CAPSULE PO ×2 (06:14→18:52)
[2023-09-15] MEDS: Omeprazole 20 MG CAPSULE.DR PO (06:14)
[2023-09-15 07:00] VITALS: BMI 21.2
[2023-09-15 11:46] VITALS: BP 139/69; PULSE 66; RESP 15; TEMP 36.8; O2SAT 92
[2023-09-15 11:48] VITALS: BP 139/69
[2023-09-15] MEDS: amLODIPine Besylate 2.5 MG TABLET PO (11:48)
[2023-09-15] MEDS: Acetaminophen 325 MG TABLET 650 MG PO ×3 (12:56→20:04)
--- NOTE | 2023-09-15 15:30 | PC.NURSE ---
Addendum entered by Aleah Castillo RN 09/15/23 18:08: Pt had just been taken off of 1:1 staffing as a trial run as she had been exhibiting safe behavior with her 1:1. Pt placed back on 1:1 staffing for safety. Original Note: Pt had unwitnessed fall in her bedroom, next to bed. Staff was doing regular rounds when they found her on the floor. VSS, head CT and hip xray ordered. Pt currently sitting in wheelchair and resting comfortably. She denies pain at this time.
[2023-09-15 15:46] VITALS: BP 132/63; PULSE 74; RESP 20; O2SAT 99
[2023-09-15 16:00] VITALS: BP 208/92; PULSE 81; RESP 19; TEMP 36.6; O2SAT 94
[2023-09-15 16:16] VITALS: BP 209/127
[2023-09-15] MEDS: amLODIPine Besylate 5 MG TABLET PO (16:16)
[2023-09-15] MEDS: traMADoL HCL 50 MG TABLET PO ×2 (16:16→20:05)
--- NOTE | 2023-09-15 18:39 | PC.NURSE ---
This nurse called this patients HCP/son, Edison to let him know about the fall that this patient had. She let him know that there are no acute findings from the CT of head and xray of pelvis. Edison stated understanding, denied any questions/concerns. Pt then had a positive phone call with Edison.
[2023-09-15 19:45] VITALS: BP 131/60; PULSE 62; RESP 18; TEMP 36.6; O2SAT 96
[2023-09-15] MEDS: Melatonin 3 MG TABLET 6 MG PO (20:04)
[2023-09-15] MEDS: Atorvastatin Calcium 20 MG TABLET PO (20:04)
[2023-09-15] MEDS: Sennosides 8.6 MG TABLET 17.2 MG PO (20:04)
[2023-09-15] MEDS: Mirtazapine 30 MG TABLET PO (20:04)
--- NOTE | 2023-09-15 20:46 | P.PNPSI_ITS ---
Subjective Subjective Date of Service: 09/15/23 Reason For Visit: Unspecified anxiety disorder Subjective Notes: Conditional Voluntary Healthcare Proxy: Yes Interim History: Pt slept most of the night. Additional prn meds given at bedtime. This morning woke up at around 11am. Pt somewhat anxious in morning did receive clonazepam 0.25mg po daily. She had unwitnessed fall was on wheelchair and it appears she tried to ambulate on her own- which typically does not do. hip xr and head CT ordered by hospitalist. No evident hip fracture on xray. No intracraneal bleeding. Diagnostics Vital Signs (24Hr): Vital Signs - 24 hr 09/15/23 11:46 09/15/23 11:48 09/15/23 15:46 Temperature 98.2 F Pulse Rate 66 74 Respiratory Rate 15 20 Blood Pressure 139/69 139/69 132/63 Pulse Oximetry 92 99 Oxygen Delivery Method Room Air Room Air 09/15/23 16:00 09/15/23 16:16 Temperature 97.9 F Pulse Rate 81 Respiratory Rate 19 Blood Pressure 208/92 H 209/127 H Pulse Oximetry 94 Oxygen Delivery Method Room Air BMI result Body Mass Index 21.9 Labs 09/10/23 07:48 Labs: Laboratory Results - last 48 hr 09/14/23 13:42 Ammonia 23 Imaging Radiology Impressions: ITS Impressions Hip X-Ray 09/15/23 15:53 IMPRESSION: Normal pelvis and hips. Head CT 09/15/23 17:04 IMPRESSION: No acute intracranial pathology. Moderate diffuse brain parenchymal volume loss and mild chronic white matter microangiopathy. Medications Medications Current Medications Acetaminophen (Acetaminophen 325 Mg Tablet) 650 mg PO TID [facility] Last Admin: 09/15/23 20:04 Dose: 650 mg Al Hydroxide/Mg Hydroxide (Magnesium Hydrox/Alum Hydrox 30 Ml Oral.Susp) 30 ml PO Q6H PRN PRN Reason: Heartburn/Nausea Amlodipine Besylate (Amlodipine Besylate 2.5 Mg Tablet) 2.5 mg PO DAILY [facility]; Protocol Last Admin: 09/15/23 11:48 Dose: 2.5 mg Atorvastatin Calcium (Atorvastatin Calcium 20 Mg Tablet) 20 mg PO BEDTIME [facility] Last Admin: 09/15/23 20:04 Dose: 20 mg Cephalexin HCl (Cephalexin 500 Mg Capsule) 500 mg PO Q12H [facility] Stop: 09/17/23 23:59 Last Admin: 09/15/23 18:52 Dose: 500 mg Clonazepam (Clonazepam 0.125 Mg Tab.Rapdis) 0.25 mg PO BID [facility] Last Admin: 09/15/23 20:04 Dose: 0.25 mg Magnesium Hydroxide (Milk Of Magnesia 30 Ml Oral.Susp) 30 ml PO DAILY PRN PRN Reason: Constipation Melatonin (Melatonin 3 Mg Tablet) 6 mg PO BEDTIME PRN PRN Reason: Sleep Last Admin: 09/15/23 20:04 Dose: 6 mg Mirtazapine (Mirtazapine 30 Mg Tablet) 30 mg PO BEDTIME [facility] Last Admin: 09/15/23 20:04 Dose: 30 mg Olanzapine (Olanzapine Odt 10 Mg Tab.Rapdis) 5 mg TRANSLINGU Q6H PRN PRN Reason: agitation Last Admin: 09/13/23 19:47 Dose: 5 mg Omeprazole (Omeprazole 20 Mg Capsule.Dr) 20 mg PO DAILY@0630 [facility] Last Admin: 09/15/23 06:14 Dose: 20 mg Senna (Sennosides 8.6 Mg Tablet) 17.2 mg PO BEDTIME [facility] Last Admin: 09/15/23 20:04 Dose: 17.2 mg Tramadol HCl (Tramadol Hcl 50 Mg Tablet) 50 mg PO BID [facility] Last Admin: 09/15/23 20:05 Dose: 50 mg Tramadol HCl (Tramadol Hcl 50 Mg Tablet) 50 mg PO DAILY PRN PRN Reason: moderate pain Last Admin: 09/15/23 16:16 Dose: 50 mg Allergies Allergies Allergy/AdvReac Type Severity Reaction Status Date / Time No Known Allergies Allergy Verified 09/09/23 17:46 Assessment & Plan Assessment & Plan (1) Major neurocognitive disorder due to Alzheimer's disease, with behavioral disturbance: Status: Acute Code(s): G30.9 - Alzheimer's disease, unspecified; F02.818 - Dementia in other diseases classified elsewhere, unspecified severity, with other behavioral disturbance Plan 09/13 schedule clonazepam 0.25mg po BID- monitor oversedation and increase confusion. plan to [id number] med regimen- d/c aricept at this point benefit is unclear given how advanced dementia is. per son depakote has been inefective for dysphoric, tearful/anxious mood. will titrate remeron also to help with mood. 09/14 pt had unwitnessed fall. hip xray did not show hip fracture. Reason for continued inpatient stay Substantial Risk for: inability to function Time Spent With Patient Time: Total time managing care of this patient today ____ minutes.
[2023-09-16] MEDS: cephALEXin 500 MG CAPSULE PO ×2 (06:08→18:11)
[2023-09-16] MEDS: Omeprazole 20 MG CAPSULE.DR PO (06:08)
[2023-09-16 11:32] VITALS: BP 206/89; PULSE 89; RESP 17; TEMP 36.7; O2SAT 97
[2023-09-16 11:36] VITALS: BP 206/89
[2023-09-16] MEDS: traMADoL HCL 50 MG TABLET PO ×2 (11:36→21:33)
[2023-09-16] MEDS: amLODIPine Besylate 2.5 MG TABLET PO (11:36)
[2023-09-16] MEDS: Acetaminophen 325 MG TABLET 650 MG PO ×3 (11:37→21:33)
[2023-09-16] MEDS: OLANZapine ODT 10 MG TAB.RAPDIS 5 MG TRANSLINGU (12:21)
--- NOTE | 2023-09-16 15:51 | P.PNPSI_ITS ---
Subjective Subjective Date of Service: 09/16/23 Reason For Visit: Unspecified anxiety disorder Subjective Notes: Conditional Voluntary Healthcare Proxy: Yes Interim History: Pt slept most of the night. She woke up late. Periods of anxious mood. continue to monitor sedation with medications. Her SBP has been elevated- 180's. increased amlodipine from 2.5mg to 5mg po continue on one to one. Review of Systems Review of Systems Unable to obtain due to patient's mentation Yes Unobtainable due to mental status Mental Status Exam Mental Status Exam Narrative: Patient Appearance: Appropriate Patient Orientation: Person Level of Consciousness: Awake, Alert Patient Behavior: Guarded and Passive, agitated Mood Description: working Affect Description: Constricted Patient Cognition Impaired: Yes Ability to Follow Directions: Fair Speech Pattern: Clear Hallucinations: None Delusions: Not Present Thought Process: Distracted and Slowed Thinking Thought Content: positive for [place] and positive for Poverty of Content Judgment: limited Diagnostics Vital Signs (24Hr): Vital Signs - 24 hr 09/15/23 16:00 09/15/23 16:16 09/15/23 19:45 Temperature 97.9 F 97.8 F Pulse Rate 81 62 Respiratory Rate 19 18 Blood Pressure 208/92 H 209/127 H 131/60 Pulse Oximetry 94 96 Oxygen Delivery Method Room Air Room Air 09/16/23 11:32 09/16/23 11:36 Temperature 98.1 F Pulse Rate 89 Respiratory Rate 17 Blood Pressure 206/89 H 206/89 H Pulse Oximetry 97 Oxygen Delivery Method Room Air BMI result Body Mass Index 21.2 Labs 09/10/23 07:48 Imaging Radiology Impressions: ITS Impressions Hip X-Ray 09/15/23 15:53 IMPRESSION: Normal pelvis and hips. Head CT 09/15/23 17:04 IMPRESSION: No acute intracranial pathology. Moderate diffuse brain parenchymal volume loss and mild chronic white matter microangiopathy. Medications Medications Current Medications Acetaminophen (Acetaminophen 325 Mg Tablet) 650 mg PO TID [facility] Last Admin: 09/16/23 11:37 Dose: 650 mg Al Hydroxide/Mg Hydroxide (Magnesium Hydrox/Alum Hydrox 30 Ml Oral.Susp) 30 ml PO Q6H PRN PRN Reason: Heartburn/Nausea Amlodipine Besylate (Amlodipine Besylate 2.5 Mg Tablet) 2.5 mg PO DAILY [facility]; Protocol Last Admin: 09/16/23 11:36 Dose: 2.5 mg Atorvastatin Calcium (Atorvastatin Calcium 20 Mg Tablet) 20 mg PO BEDTIME [facility] Last Admin: 09/15/23 20:04 Dose: 20 mg Cephalexin HCl (Cephalexin 500 Mg Capsule) 500 mg PO Q12H [facility] Stop: 09/17/23 23:59 Last Admin: 09/16/23 06:08 Dose: 500 mg Clonazepam (Clonazepam 0.125 Mg Tab.Rapdis) 0.25 mg PO BID [facility] Last Admin: 09/16/23 11:37 Dose: 0.25 mg Magnesium Hydroxide (Milk Of Magnesia 30 Ml Oral.Susp) 30 ml PO DAILY PRN PRN Reason: Constipation Melatonin (Melatonin 3 Mg Tablet) 6 mg PO BEDTIME PRN PRN Reason: Sleep Last Admin: 09/15/23 20:04 Dose: 6 mg Mirtazapine (Mirtazapine 30 Mg Tablet) 30 mg PO BEDTIME [facility] Last Admin: 09/15/23 20:04 Dose: 30 mg Olanzapine (Olanzapine Odt 10 Mg Tab.Rapdis) 5 mg TRANSLINGU Q6H PRN PRN Reason: agitation Last Admin: 09/16/23 12:21 Dose: 5 mg Omeprazole (Omeprazole 20 Mg Capsule.Dr) 20 mg PO DAILY@0630 [facility] Last Admin: 09/16/23 06:08 Dose: 20 mg Senna (Sennosides 8.6 Mg Tablet) 17.2 mg PO BEDTIME [facility] Last Admin: 09/15/23 20:04 Dose: 17.2 mg Tramadol HCl (Tramadol Hcl 50 Mg Tablet) 50 mg PO BID [facility] Last Admin: 09/16/23 11:36 Dose: 50 mg Tramadol HCl (Tramadol Hcl 50 Mg Tablet) 50 mg PO DAILY PRN PRN Reason: moderate pain Last Admin: 09/15/23 16:16 Dose: 50 mg Allergies Allergies Allergy/AdvReac Type Severity Reaction Status Date / Time No Known Allergies Allergy Verified 09/09/23 17:46 Assessment & Plan Assessment & Plan (1) Major neurocognitive disorder due to Alzheimer's disease, with behavioral disturbance: Status: Acute Code(s): G30.9 - Alzheimer's disease, unspecified; F02.818 - Dementia in other diseases classified elsewhere, unspecified severity, with other behavioral disturbance Plan 09/13 schedule clonazepam 0.25mg po BID- monitor oversedation and increase confusion. plan to [id number] med regimen- d/c aricept at this point benefit is unclear given how advanced dementia is. per son depakote has been inefective for dysphoric, tearful/anxious mood. will titrate remeron also to help with mood. 09/14 pt had unwitnessed fall. hip xray did not show hip fracture. head CT without intracranial hemorrage. 09/15 SBP elevated 180's, increase amlodipine to 5mg po daily. monitor sedation, avoid over medication. Reason for continued inpatient stay Substantial Risk for: inability to function Time Spent With Patient Time: Total time managing care of this patient today ____ minutes.
[2023-09-16 18:09] VITALS: BP 98/50
[2023-09-16 20:00] VITALS: BP 136/70; PULSE 96; RESP 16; TEMP 36.3; O2SAT 98
[2023-09-16 21:29] VITALS: BP 104/58
[2023-09-16] MEDS: cloNIDine HCL 0.1 MG TABLET 0.05 MG PO (21:29)
[2023-09-16] MEDS: Atorvastatin Calcium 20 MG TABLET PO (21:32)
[2023-09-16] MEDS: Melatonin 3 MG TABLET 6 MG PO (21:33)
[2023-09-16] MEDS: Sennosides 8.6 MG TABLET 17.2 MG PO (21:34)
[2023-09-16] MEDS: Mirtazapine 30 MG TABLET PO (21:34)
[2023-09-17] MEDS: cephALEXin 500 MG CAPSULE PO ×2 (06:19→16:48)
[2023-09-17] MEDS: Omeprazole 20 MG CAPSULE.DR PO (06:20)
[2023-09-17 08:00] VITALS: BP 159/65; PULSE 98; RESP 16; TEMP 36.6; O2SAT 98
[2023-09-17] MEDS: traMADoL HCL 50 MG TABLET PO ×2 (08:13→17:43)
[2023-09-17 08:14] VITALS: BP 139/65
[2023-09-17] MEDS: cloNIDine HCL 0.1 MG TABLET 0.05 MG PO ×3 (08:14→20:22)
[2023-09-17 08:15] VITALS: BP 139/65
[2023-09-17] MEDS: Acetaminophen 325 MG TABLET 650 MG PO ×3 (08:15→20:23)
[2023-09-17] MEDS: amLODIPine Besylate 5 MG TABLET PO (08:15)
--- NOTE | 2023-09-17 10:49 | HO.PSYCHPN ---
Subjective Subjective Date of Service: 09/17/23 Reason For Visit: Unspecified anxiety disorder Subjective Notes: Conditional Voluntary Interim History: Attempted to see the patient but was very drowsy and unarousable. Discussed in rounds. Records and plans were reviewed. She is on one-to-one for safety. Medications are being crushed to administer. No changes were made today Review of Systems Review of Systems Yes Unobtainable due to mental status Mental Status Exam Mental Status Exam Narrative: Could not assess Diagnostics Vital Signs (24Hr): Vital Signs - 24 hr 09/16/23 11:32 09/16/23 11:36 09/16/23 18:09 Temperature 98.1 F Pulse Rate 89 Respiratory Rate 17 Blood Pressure 206/89 H 206/89 H 98/50 L Pulse Oximetry 97 Oxygen Delivery Method Room Air 09/16/23 20:00 09/16/23 21:29 09/17/23 08:00 Temperature 97.3 F 97.9 F Pulse Rate 96 98 Respiratory Rate 16 16 Blood Pressure 136/70 104/58 L 159/65 H Pulse Oximetry 98 98 Oxygen Delivery Method Room Air Room Air 09/17/23 08:14 09/17/23 08:15 Temperature Pulse Rate Respiratory Rate Blood Pressure 139/65 139/65 Pulse Oximetry Oxygen Delivery Method BMI result Body Mass Index 21.2 Labs 09/10/23 07:48 Imaging Radiology Impressions: ITS Impressions Hip X-Ray 09/15/23 15:53 IMPRESSION: Normal pelvis and hips. Head CT 09/15/23 17:04 IMPRESSION: No acute intracranial pathology. Moderate diffuse brain parenchymal volume loss and mild chronic white matter microangiopathy. Medications Medications Current Medications Acetaminophen (Acetaminophen 325 Mg Tablet) 650 mg PO TID [facility] Last Admin: 09/17/23 08:15 Dose: 650 mg Al Hydroxide/Mg Hydroxide (Magnesium Hydrox/Alum Hydrox 30 Ml Oral.Susp) 30 ml PO Q6H PRN PRN Reason: Heartburn/Nausea Amlodipine Besylate (Amlodipine Besylate 5 Mg Tablet) 5 mg PO DAILY [facility]; Protocol Last Admin: 09/17/23 08:15 Dose: 5 mg Atorvastatin Calcium (Atorvastatin Calcium 20 Mg Tablet) 20 mg PO BEDTIME [facility] Last Admin: 09/16/23 21:32 Dose: 20 mg Cephalexin HCl (Cephalexin 500 Mg Capsule) 500 mg PO Q12H [facility] Stop: 09/17/23 23:59 Last Admin: 09/17/23 06:19 Dose: 500 mg Clonazepam (Clonazepam 0.125 Mg Tab.Rapdis) 0.25 mg PO BID [facility] Last Admin: 09/17/23 08:15 Dose: 0.25 mg Clonidine HCl (Clonidine Hcl 0.1 Mg Tablet) 0.05 mg PO TID [facility]; Protocol Last Admin: 09/17/23 08:14 Dose: 0.05 mg Magnesium Hydroxide (Milk Of Magnesia 30 Ml Oral.Susp) 30 ml PO DAILY PRN PRN Reason: Constipation Melatonin (Melatonin 3 Mg Tablet) 6 mg PO BEDTIME PRN PRN Reason: Sleep Last Admin: 09/16/23 21:33 Dose: 6 mg Mirtazapine (Mirtazapine 30 Mg Tablet) 30 mg PO BEDTIME [facility] Last Admin: 09/16/23 21:34 Dose: 30 mg Olanzapine (Olanzapine Odt 10 Mg Tab.Rapdis) 5 mg TRANSLINGU Q6H PRN PRN Reason: agitation Last Admin: 09/16/23 12:21 Dose: 5 mg Omeprazole (Omeprazole 20 Mg Capsule.Dr) 20 mg PO DAILY@0630 [facility] Last Admin: 09/17/23 06:20 Dose: 20 mg Senna (Sennosides 8.6 Mg Tablet) 17.2 mg PO BEDTIME [facility] Last Admin: 09/16/23 21:34 Dose: 17.2 mg Tramadol HCl (Tramadol Hcl 50 Mg Tablet) 50 mg PO BID [facility] Last Admin: 09/17/23 08:13 Dose: 50 mg Tramadol HCl (Tramadol Hcl 50 Mg Tablet) 50 mg PO DAILY PRN PRN Reason: moderate pain Last Admin: 09/15/23 16:16 Dose: 50 mg Allergies Allergies Allergy/AdvReac Type Severity Reaction Status Date / Time No Known Allergies Allergy Verified 09/09/23 17:46 Assessment & Plan Assessment & Plan (1) Major neurocognitive disorder due to Alzheimer's disease, with behavioral disturbance: Status: Acute Code(s): G30.9 - Alzheimer's disease, unspecified; F02.818 - Dementia in other diseases classified elsewhere, unspecified severity, with other behavioral disturbance Plan 09/13 schedule clonazepam 0.25mg po BID- monitor oversedation and increase confusion. plan to [id number] med regimen- d/c aricept at this point benefit is unclear given how advanced dementia is. per son depakote has been inefective for dysphoric, tearful/anxious mood. will titrate remeron also to help with mood. 09/14 pt had unwitnessed fall. hip xray did not show hip fracture. 09/17/2023: Continue current regimen and plans Reason for continued inpatient stay Substantial Risk for: inability to function Time Spent With Patient Time: Total time managing care of this patient today ____ minutes.
[2023-09-17 12:29] LABS: Alanine Aminotransferase 15 U/L (0-31); Albumin Level 3.6 g/dL (3.5-5.0); Alkaline Phosphatase 57 U/L (39-117); Anion Gap 13 (12-20); Aspartate Amino Transferase 21 U/L (5-31); Bilirubin Total 0.5 mg/dL (0.0-1.0); Blood Urea Nitrogen 45 mg/dL (9-16); Calcium 9.1 mg/dL (8.4-10.2); Carbon Dioxide 23 mmol/L (22-29); Chloride 112 mmol/L (96-108); Creatinine Clr Calc Pharmacy 28.2; Estimated Glomerular Filt Rate 44; Glucose Random 114 mg/dL (60-115); Potassium 4.5 mmol/L (3.3-5.1); Sodium 143 mmol/L (135-145); Total Protein 6.4 g/dL (6.5-8.0)
[2023-09-17 16:00] VITALS: BP 114/64
[2023-09-17] MEDS: OLANZapine ODT 10 MG TAB.RAPDIS 5 MG TRANSLINGU (17:50)
[2023-09-17 20:00] VITALS: BP 133/64; PULSE 75; RESP 18; TEMP 36.4; O2SAT 96
[2023-09-17 20:22] VITALS: BP 133/60
[2023-09-17] MEDS: Melatonin 3 MG TABLET 6 MG PO (20:22)
[2023-09-17] MEDS: Atorvastatin Calcium 20 MG TABLET PO (20:22)
[2023-09-17] MEDS: Mirtazapine 15 MG TABLET PO (20:22)
[2023-09-17] MEDS: Sennosides 8.6 MG TABLET 17.2 MG PO (20:23)
[2023-09-18] MEDS: Omeprazole 20 MG CAPSULE.DR PO (05:47)
--- NOTE | 2023-09-18 10:00 | HO.PSYCHPN ---
Subjective Subjective Date of Service: 09/18/23 Reason For Visit: Unspecified anxiety disorder Subjective Notes: Conditional Voluntary Interim History: Patient was seen and discussed in rounds today. Records and plans were reviewed. She had some restlessness last evening and was agitated and tearful. Zyprexa was helpful. She also had an episode of emesis and Zofran will be ordered on a p.r.n. basis. Eating and sleeping adequately. No other changes were made. Review of Systems Review of Systems Yes all other systems are reviewed and are negative Mental Status Exam Mental Status Exam Narrative: Could not assess Diagnostics Vital Signs (24Hr): Vital Signs - 24 hr 09/17/23 16:00 09/17/23 20:00 09/17/23 20:22 Temperature 97.6 F Pulse Rate 75 Respiratory Rate 18 Blood Pressure 114/64 133/64 133/60 Pulse Oximetry 96 Oxygen Delivery Method Room Air BMI result Body Mass Index 21.2 Labs 09/17/23 11:58 Labs: Laboratory Results - last 48 hr 09/17/23 11:58 Hold Purple Top SEE NOTE Sodium 143 Potassium 4.5 D Chloride 112 H Carbon Dioxide 23 Anion Gap 13 BUN 45 H Creatinine 1.16 Estim Creat Clear Calc 28.2 Estimated GFR 44 Random Glucose 114 Calcium 9.1 Total Bilirubin 0.5 AST 21 ALT 15 Alkaline Phosphatase 57 Total Protein 6.4 L Albumin 3.6 Imaging Radiology Impressions: ITS Impressions Hip X-Ray 09/15/23 15:53 IMPRESSION: Normal pelvis and hips. Head CT 09/15/23 17:04 IMPRESSION: No acute intracranial pathology. Moderate diffuse brain parenchymal volume loss and mild chronic white matter microangiopathy. Medications Medications Current Medications Acetaminophen (Acetaminophen 325 Mg Tablet) 650 mg PO TID [facility] Last Admin: 09/17/23 20:23 Dose: 650 mg Al Hydroxide/Mg Hydroxide (Magnesium Hydrox/Alum Hydrox 30 Ml Oral.Susp) 30 ml PO Q6H PRN PRN Reason: Heartburn/Nausea Amlodipine Besylate (Amlodipine Besylate 5 Mg Tablet) 5 mg PO DAILY [facility]; Protocol Last Admin: 09/17/23 08:15 Dose: 5 mg Atorvastatin Calcium (Atorvastatin Calcium 20 Mg Tablet) 20 mg PO BEDTIME [facility] Last Admin: 09/17/23 20:22 Dose: 20 mg Clonazepam (Clonazepam 0.125 Mg Tab.Rapdis) 0.25 mg PO BID [facility] Last Admin: 09/17/23 20:24 Dose: 0.25 mg Clonidine HCl (Clonidine Hcl 0.1 Mg Tablet) 0.05 mg PO TID [facility]; Protocol Last Admin: 09/17/23 20:22 Dose: 0.05 mg Magnesium Hydroxide (Milk Of Magnesia 30 Ml Oral.Susp) 30 ml PO DAILY PRN PRN Reason: Constipation Melatonin (Melatonin 3 Mg Tablet) 6 mg PO BEDTIME PRN PRN Reason: Sleep Last Admin: 09/17/23 20:22 Dose: 6 mg Mirtazapine (Mirtazapine 15 Mg Tablet) 15 mg PO BEDTIME [facility] Last Admin: 09/17/23 20:22 Dose: 15 mg Olanzapine (Olanzapine Odt 10 Mg Tab.Rapdis) 5 mg TRANSLINGU Q6H PRN PRN Reason: agitation Last Admin: 09/17/23 17:50 Dose: 5 mg Omeprazole (Omeprazole 20 Mg Capsule.Dr) 20 mg PO DAILY@0630 [facility] Last Admin: 09/18/23 05:47 Dose: 20 mg Senna (Sennosides 8.6 Mg Tablet) 17.2 mg PO BEDTIME [facility] Last Admin: 09/17/23 20:23 Dose: 17.2 mg Tramadol HCl (Tramadol Hcl 50 Mg Tablet) 50 mg PO BID PRN PRN Reason: Pain, Moderate(Pain Scale 4-6) Last Admin: 09/17/23 17:43 Dose: 50 mg Allergies Allergies Allergy/AdvReac Type Severity Reaction Status Date / Time No Known Allergies Allergy Verified 09/09/23 17:46 Assessment & Plan Assessment & Plan (1) Major neurocognitive disorder due to Alzheimer's disease, with behavioral disturbance: Status: Acute Code(s): G30.9 - Alzheimer's disease, unspecified; F02.818 - Dementia in other diseases classified elsewhere, unspecified severity, with other behavioral disturbance Plan 09/13 schedule clonazepam 0.25mg po BID- monitor oversedation and increase confusion. plan to [id number] med regimen- d/c aricept at this point benefit is unclear given how advanced dementia is. per son luis has been inefective for dysphoric, tearful/anxious mood. will titrate remeron also to help with mood. 09/14 pt had unwitnessed fall. hip xray did not show hip fracture. head CT without intracranial hemorrage. 09/15 SBP elevated 180's, increase amlodipine to 5mg po daily. monitor sedation, avoid over medication. 09/18/2023: Continue current regimen and plans. Zofran was added/p.r.n. Patient educated on: medication risk/benefits Reason for continued inpatient stay Substantial Risk for: med/psych decompensation Time Spent With Patient Time: Total time managing care of this patient today ____ minutes.
[2023-09-18 11:11] VITALS: BP 108/69; PULSE 56; RESP 16; TEMP 36.2; O2SAT 96
[2023-09-18] MEDS: Acetaminophen 325 MG TABLET 650 MG PO ×2 (11:19→20:31)
[2023-09-18] MEDS: amLODIPine Besylate 5 MG TABLET PO (11:20)
[2023-09-18 11:21] VITALS: BP 108/69
[2023-09-18] MEDS: cloNIDine HCL 0.1 MG TABLET 0.05 MG PO ×2 (11:21→20:32)
[2023-09-18] MEDS: OLANZapine ODT 10 MG TAB.RAPDIS 5 MG TRANSLINGU ×2 (13:09→17:34)
--- NOTE | 2023-09-18 13:30 | PC.NURSE ---
Patient tearful and agitated. Medicated with Olanzapine 5 mg. Will monitor for effect.
[2023-09-18 15:23] VITALS: BP 84/45
--- NOTE | 2023-09-18 15:48 | PC.NURSE ---
Patient BP taken at 1500. 84/45. Provider notified. Advised to push fluids and keep patient in bed until pressure improves.
--- NOTE | 2023-09-18 17:27 | PC.NURSE ---
Patient BP rechecked. 155/67. Provider notified.
--- NOTE | 2023-09-18 17:45 | PC.NURSE ---
Patient given 5 mg Zydis for agitation at 1734 per provider order. Will continue to monitor.
[2023-09-18 20:00] VITALS: BP 122/60; PULSE 72; RESP 18; TEMP 36.6; O2SAT 96
[2023-09-18] MEDS: Sennosides 8.6 MG TABLET 17.2 MG PO (20:31)
[2023-09-18] MEDS: Melatonin 3 MG TABLET 6 MG PO (20:31)
[2023-09-18] MEDS: Atorvastatin Calcium 20 MG TABLET PO (20:31)
[2023-09-18 20:32] VITALS: BP 122/60
[2023-09-18] MEDS: traMADoL HCL 50 MG TABLET PO (20:32)
[2023-09-18] MEDS: Mirtazapine 15 MG TABLET PO (20:32)
[2023-09-19] VITALS (7 sets, daily range): BP systolic 107–158; BP diastolic 57–70; PULSE 50–81; RESP 12–20; TEMP 35.7–36; O2SAT 95
[2023-09-19] MEDS: Omeprazole 20 MG CAPSULE.DR PO (05:34)
--- NOTE | 2023-09-19 09:12 | HO.PSYCHPN ---
Subjective Subjective Date of Service: 09/19/23 Reason For Visit: Unspecified anxiety disorder Subjective Notes: Conditional Voluntary Healthcare Proxy: Yes Interim History: Pt slept most of the night. She woke up later in the morning, somewhat anxious affect. She later had a nap. BP has been lowered than last week, SBP was in 180's. She is taking medications as prescribed. She is only oriented to self. In wheelchair. No behavioral concerns. Review of Systems Review of Systems Unable to obtain due to patient's mentation Yes all other systems are reviewed and are negative and Unobtainable due to mental status Diagnostics Vital Signs (24Hr): Vital Signs - 24 hr 09/18/23 11:11 09/18/23 11:21 09/18/23 15:23 Temperature 97.1 F Pulse Rate 56 Respiratory Rate 16 Blood Pressure 108/69 108/69 84/45 L Pulse Oximetry 96 Oxygen Delivery Method Room Air 09/18/23 20:00 09/18/23 20:32 09/19/23 07:51 Temperature 97.8 F 96.8 F Pulse Rate 72 50 Respiratory Rate 18 12 Blood Pressure 122/60 122/60 107/57 L Pulse Oximetry 96 95 Oxygen Delivery Method Room Air Room Air BMI result Body Mass Index 21.2 Labs 09/17/23 11:58 Labs: Laboratory Results - last 48 hr 09/17/23 11:58 Hold Purple Top SEE NOTE Sodium 143 Potassium 4.5 D Chloride 112 H Carbon Dioxide 23 Anion Gap 13 BUN 45 H Creatinine 1.16 Estim Creat Clear Calc 28.2 Estimated GFR 44 Random Glucose 114 Calcium 9.1 Total Bilirubin 0.5 AST 21 ALT 15 Alkaline Phosphatase 57 Total Protein 6.4 L Albumin 3.6 Imaging Radiology Impressions: ITS Impressions Hip X-Ray 09/15/23 15:53 IMPRESSION: Normal pelvis and hips. Head CT 09/15/23 17:04 IMPRESSION: No acute intracranial pathology. Moderate diffuse brain parenchymal volume loss and mild chronic white matter microangiopathy. Medications Medications Current Medications Acetaminophen (Acetaminophen 325 Mg Tablet) 650 mg PO TID [facility] Last Admin: 09/18/23 20:31 Dose: 650 mg Al Hydroxide/Mg Hydroxide (Magnesium Hydrox/Alum Hydrox 30 Ml Oral.Susp) 30 ml PO Q6H PRN PRN Reason: Heartburn/Nausea Amlodipine Besylate (Amlodipine Besylate 5 Mg Tablet) 5 mg PO DAILY [facility]; Protocol Last Admin: 09/18/23 11:20 Dose: 5 mg Atorvastatin Calcium (Atorvastatin Calcium 20 Mg Tablet) 20 mg PO BEDTIME [facility] Last Admin: 09/18/23 20:31 Dose: 20 mg Clonazepam (Clonazepam 0.125 Mg Tab.Rapdis) 0.25 mg PO BID [facility] Last Admin: 09/18/23 20:31 Dose: 0.25 mg Clonidine HCl (Clonidine Hcl 0.1 Mg Tablet) 0.05 mg PO TID [facility]; Protocol Last Admin: 09/18/23 20:32 Dose: 0.05 mg Magnesium Hydroxide (Milk Of Magnesia 30 Ml Oral.Susp) 30 ml PO DAILY PRN PRN Reason: Constipation Melatonin (Melatonin 3 Mg Tablet) 6 mg PO BEDTIME PRN PRN Reason: Sleep Last Admin: 09/18/23 20:31 Dose: 6 mg Mirtazapine (Mirtazapine 15 Mg Tablet) 15 mg PO BEDTIME [facility] Last Admin: 09/18/23 20:32 Dose: 15 mg Olanzapine (Olanzapine Odt 10 Mg Tab.Rapdis) 5 mg TRANSLINGU Q6H PRN PRN Reason: agitation Last Admin: 09/18/23 17:34 Dose: 5 mg Omeprazole (Omeprazole 20 Mg Capsule.Dr) 20 mg PO DAILY@0630 [facility] Last Admin: 09/19/23 05:34 Dose: 20 mg Senna (Sennosides 8.6 Mg Tablet) 17.2 mg PO BEDTIME [facility] Last Admin: 09/18/23 20:31 Dose: 17.2 mg Tramadol HCl (Tramadol Hcl 50 Mg Tablet) 50 mg PO BID PRN PRN Reason: Pain, Moderate(Pain Scale 4-6) Last Admin: 09/18/23 20:32 Dose: 50 mg Allergies Allergies Allergy/AdvReac Type Severity Reaction Status Date / Time No Known Allergies Allergy Verified 09/09/23 17:46 Assessment & Plan Assessment & Plan (1) Major neurocognitive disorder due to Alzheimer's disease, with behavioral disturbance: Status: Acute Code(s): G30.9 - Alzheimer's disease, unspecified; F02.818 - Dementia in other diseases classified elsewhere, unspecified severity, with other behavioral disturbance Plan 09/13 schedule clonazepam 0.25mg po BID- monitor oversedation and increase confusion. plan to [id number] med regimen- d/c aricept at this point benefit is unclear given how advanced dementia is. per son depakote has been inefective for dysphoric, tearful/anxious mood. will titrate remeron also to help with mood. 09/14 pt had unwitnessed fall. hip xray did not show hip fracture. head CT without intracranial hemorrage. 09/15 SBP elevated 180's, increase amlodipine to 5mg po daily. monitor sedation, avoid over medication. 09/18/2023: Continue current regimen and plans. Zofran was added/p.r.n. 09/18 continue tx. monitor oversedation, Reason for continued inpatient stay Substantial Risk for: inability to function Time Spent With Patient Time: Total time managing care of this patient today ____ minutes.
[2023-09-19] MEDS: Acetaminophen 325 MG TABLET 650 MG PO ×3 (11:10→20:31)
[2023-09-19] MEDS: amLODIPine Besylate 5 MG TABLET PO (11:11)
[2023-09-19] MEDS: cloNIDine HCL 0.1 MG TABLET 0.05 MG PO ×3 (11:17→20:33)
[2023-09-19] MEDS: OLANZapine ODT 10 MG TAB.RAPDIS 5 MG TRANSLINGU (14:34)
--- NOTE | 2023-09-19 14:43 | PC.NURSE ---
Patient became anxious and agitated during group OT today. PRN Zyprexa Zydis given PO at 1435, effect pending.
[2023-09-19] MEDS: Atorvastatin Calcium 20 MG TABLET PO (20:32)
[2023-09-19] MEDS: Mirtazapine 15 MG TABLET PO (20:35)
[2023-09-19] MEDS: Sennosides 8.6 MG TABLET 17.2 MG PO (20:36)
[2023-09-20] MEDS: OLANZapine ODT 10 MG TAB.RAPDIS 5 MG TRANSLINGU ×2 (00:50→16:46)
[2023-09-20] MEDS: Melatonin 3 MG TABLET 6 MG PO ×2 (00:50→20:18)
[2023-09-20] MEDS: Omeprazole 20 MG CAPSULE.DR PO (05:47)
[2023-09-20 07:59] VITALS: BP 136/69; PULSE 63; RESP 18; TEMP 36.2; O2SAT 95
[2023-09-20] MEDS: Acetaminophen 325 MG TABLET 650 MG PO ×3 (08:50→20:17)
[2023-09-20] MEDS: amLODIPine Besylate 5 MG TABLET PO (08:52)
[2023-09-20] MEDS: cloNIDine HCL 0.1 MG TABLET 0.05 MG PO ×3 (08:52→20:19)
--- NOTE | 2023-09-20 11:45 | P.PNPSI_ITS ---
Subjective Subjective Date of Service: 09/20/23 Reason For Visit: Unspecified anxiety disorder Interim History: Pt slept most of the night. She woke up later in the morning, somewhat anxious affect. She later had a nap. BP has been lowered than last week, SBP was in 180's. She is taking medications as prescribed. She is only oriented to self. In wheelchair. No behavioral concerns. Review of Systems Review of Systems Unable to obtain due to patient's mentation Yes all other systems are reviewed and are negative and Unobtainable due to mental status Mental Status Exam Mental Status Exam Narrative: Pt sitting in wheelchair, appears anxious. holding doll. unable to verbalize reason for anxious/dysphoric mood. Not oriented to place, situation or month. Diagnostics Vital Signs (24Hr): Vital Signs - 24 hr 09/19/23 14:32 09/19/23 14:34 09/19/23 20:00 Temperature 96.3 F L Pulse Rate 64 58 Respiratory Rate 18 Blood Pressure 138/62 138/62 158/70 H Pulse Oximetry 95 Oxygen Delivery Method Room Air 09/20/23 07:59 Temperature 97.2 F Pulse Rate 63 Respiratory Rate 18 Blood Pressure 136/69 Pulse Oximetry 95 Oxygen Delivery Method Room Air BMI result Body Mass Index 21.2 Labs 09/17/23 11:58 Imaging Radiology Impressions: ITS Impressions Hip X-Ray 09/15/23 15:53 IMPRESSION: Normal pelvis and hips. Head CT 09/15/23 17:04 IMPRESSION: No acute intracranial pathology. Moderate diffuse brain parenchymal volume loss and mild chronic white matter microangiopathy. Medications Medications Current Medications Acetaminophen (Acetaminophen 325 Mg Tablet) 650 mg PO TID [facility] Last Admin: 09/20/23 08:50 Dose: 650 mg Al Hydroxide/Mg Hydroxide (Magnesium Hydrox/Alum Hydrox 30 Ml Oral.Susp) 30 ml PO Q6H PRN PRN Reason: Heartburn/Nausea Amlodipine Besylate (Amlodipine Besylate 5 Mg Tablet) 5 mg PO DAILY [facility]; Protocol Last Admin: 09/20/23 08:52 Dose: 5 mg Atorvastatin Calcium (Atorvastatin Calcium 20 Mg Tablet) 20 mg PO BEDTIME [facility] Last Admin: 09/19/23 20:32 Dose: 20 mg Clonazepam (Clonazepam 0.125 Mg Tab.Rapdis) 0.25 mg PO BID [facility] Last Admin: 09/20/23 08:51 Dose: 0.25 mg Clonidine HCl (Clonidine Hcl 0.1 Mg Tablet) 0.05 mg PO TID [facility]; Protocol Last Admin: 09/20/23 08:52 Dose: 0.05 mg Magnesium Hydroxide (Milk Of Magnesia 30 Ml Oral.Susp) 30 ml PO DAILY PRN PRN Reason: Constipation Melatonin (Melatonin 3 Mg Tablet) 6 mg PO BEDTIME PRN PRN Reason: Sleep Last Admin: 09/20/23 00:50 Dose: 6 mg Mirtazapine (Mirtazapine 15 Mg Tablet) 15 mg PO BEDTIME [facility] Last Admin: 09/19/23 20:35 Dose: 15 mg Olanzapine (Olanzapine Odt 10 Mg Tab.Rapdis) 5 mg TRANSLINGU Q6H PRN PRN Reason: agitation Last Admin: 09/20/23 00:50 Dose: 5 mg Omeprazole (Omeprazole 20 Mg Capsule.Dr) 20 mg PO DAILY@0630 [facility] Last Admin: 09/20/23 05:47 Dose: 20 mg Senna (Sennosides 8.6 Mg Tablet) 17.2 mg PO BEDTIME [facility] Last Admin: 09/19/23 20:36 Dose: 17.2 mg Tramadol HCl (Tramadol Hcl 50 Mg Tablet) 50 mg PO BID PRN PRN Reason: Pain, Moderate(Pain Scale 4-6) Last Admin: 09/18/23 20:32 Dose: 50 mg Allergies Allergies Allergy/AdvReac Type Severity Reaction Status Date / Time No Known Allergies Allergy Verified 09/09/23 17:46 Assessment & Plan Assessment & Plan (1) Major neurocognitive disorder due to Alzheimer's disease, with behavioral disturbance: Status: Acute Code(s): G30.9 - Alzheimer's disease, unspecified; F02.818 - Dementia in other diseases classified elsewhere, unspecified severity, with other behavioral disturbance Plan 09/13 schedule clonazepam 0.25mg po BID- monitor oversedation and increase confusion. plan to [id number] med regimen- d/c aricept at this point benefit is unclear given how advanced dementia is. per son luis has been inefective for dysphoric, tearful/anxious mood. will titrate remeron also to help with mood. 09/14 pt had unwitnessed fall. hip xray did not show hip fracture. head CT without intracranial hemorrage. 09/15 SBP elevated 180's, increase amlodipine to 5mg po daily. monitor sedation, avoid over medication. 09/18/2023: Continue current regimen and plans. Zofran was added/p.r.n. 09/18 continue tx. monitor oversedation, 09/19 continue tx. Reason for continued inpatient stay Substantial Risk for: inability to function Time Spent With Patient Time: Total time managing care of this patient today ____ minutes.
[2023-09-20 14:36] VITALS: BP 127/103; PULSE 71
--- NOTE | 2023-09-20 16:48 | PC.NURSE ---
Patient howling and pushing staff away during mealtime. She is trying to find her keys and wants the police to be called. She is agitated. Zyprexa Zydis 5mg PO given at 1446, effect pending.
[2023-09-20 20:00] VITALS: BP 181/75; PULSE 92; RESP 18; TEMP 35.9; O2SAT 100
[2023-09-20] MEDS: Atorvastatin Calcium 20 MG TABLET PO (20:17)
[2023-09-20] MEDS: Sennosides 8.6 MG TABLET 17.2 MG PO (20:18)
[2023-09-20] MEDS: Mirtazapine 15 MG TABLET PO (20:18)
[2023-09-21] MEDS: traMADoL HCL 50 MG TABLET PO (00:45)
--- NOTE | 2023-09-21 08:44 | HO.PSYCHPN ---
Subjective Subjective Date of Service: 09/21/23 Reason For Visit: Unspecified anxiety disorder Subjective Notes: Conditional Voluntary Healthcare Proxy: Yes Interim History: Pt slept about 4 hrs. She woke up mid morning. She presents as somewhat anxious but redirectable. No aggression towards self or others. taking medications as prescribed. VS- stable Review of Systems Review of Systems Unable to obtain due to patient's mentation Yes all other systems are reviewed and are negative and Unobtainable due to mental status Mental Status Exam Mental Status Exam Narrative: Pt sitting in wheelchair, appears anxious. holding doll. unable to verbalize reason for anxious/dysphoric mood. Not oriented to place, situation or month. Diagnostics Vital Signs (24Hr): Vital Signs - 24 hr 09/20/23 14:36 09/20/23 20:00 Temperature 96.7 F L Pulse Rate 71 92 Respiratory Rate 18 Blood Pressure 127/103 H 181/75 H Pulse Oximetry 100 Oxygen Delivery Method Room Air BMI result Body Mass Index 21.2 Labs 09/17/23 11:58 Imaging Radiology Impressions: ITS Impressions Hip X-Ray 09/15/23 15:53 IMPRESSION: Normal pelvis and hips. Head CT 09/15/23 17:04 IMPRESSION: No acute intracranial pathology. Moderate diffuse brain parenchymal volume loss and mild chronic white matter microangiopathy. Medications Medications Current Medications Acetaminophen (Acetaminophen 325 Mg Tablet) 650 mg PO TID [facility] Last Admin: 09/20/23 20:17 Dose: 650 mg Al Hydroxide/Mg Hydroxide (Magnesium Hydrox/Alum Hydrox 30 Ml Oral.Susp) 30 ml PO Q6H PRN PRN Reason: Heartburn/Nausea Amlodipine Besylate (Amlodipine Besylate 5 Mg Tablet) 5 mg PO DAILY [facility]; Protocol Last Admin: 09/20/23 08:52 Dose: 5 mg Atorvastatin Calcium (Atorvastatin Calcium 20 Mg Tablet) 20 mg PO BEDTIME [facility] Last Admin: 09/20/23 20:17 Dose: 20 mg Clonazepam (Clonazepam 0.125 Mg Tab.Rapdis) 0.25 mg PO BID [facility] Last Admin: 09/20/23 20:18 Dose: 0.25 mg Clonidine HCl (Clonidine Hcl 0.1 Mg Tablet) 0.05 mg PO TID [facility]; Protocol Last Admin: 09/20/23 20:19 Dose: 0.05 mg Magnesium Hydroxide (Milk Of Magnesia 30 Ml Oral.Susp) 30 ml PO DAILY PRN PRN Reason: Constipation Melatonin (Melatonin 3 Mg Tablet) 6 mg PO BEDTIME PRN PRN Reason: Sleep Last Admin: 09/20/23 20:18 Dose: 6 mg Mirtazapine (Mirtazapine 15 Mg Tablet) 15 mg PO BEDTIME [facility] Last Admin: 09/20/23 20:18 Dose: 15 mg Olanzapine (Olanzapine Odt 10 Mg Tab.Rapdis) 5 mg TRANSLINGU Q6H PRN PRN Reason: agitation Last Admin: 09/20/23 16:46 Dose: 5 mg Omeprazole (Omeprazole 20 Mg Capsule.Dr) 20 mg PO DAILY@0630 [facility] Last Admin: 09/20/23 05:47 Dose: 20 mg Senna (Sennosides 8.6 Mg Tablet) 17.2 mg PO BEDTIME [facility] Last Admin: 09/20/23 20:18 Dose: 17.2 mg Tramadol HCl (Tramadol Hcl 50 Mg Tablet) 50 mg PO BID PRN PRN Reason: Pain, Moderate(Pain Scale 4-6) Last Admin: 09/21/23 00:45 Dose: 50 mg Allergies Allergies Allergy/AdvReac Type Severity Reaction Status Date / Time No Known Allergies Allergy Verified 09/09/23 17:46 Assessment & Plan Assessment & Plan (1) Major neurocognitive disorder due to Alzheimer's disease, with behavioral disturbance: Status: Acute Code(s): G30.9 - Alzheimer's disease, unspecified; F02.818 - Dementia in other diseases classified elsewhere, unspecified severity, with other behavioral disturbance Plan 09/13 schedule clonazepam 0.25mg po BID- monitor oversedation and increase confusion. plan to [id number] med regimen- d/c aricept at this point benefit is unclear given how advanced dementia is. per son depakote has been inefective for dysphoric, tearful/anxious mood. will titrate remeron also to help with mood. 09/14 pt had unwitnessed fall. hip xray did not show hip fracture. head CT without intracranial hemorrage. 09/15 SBP elevated 180's, increase amlodipine to 5mg po daily. monitor sedation, avoid over medication. 09/18/2023: Continue current regimen and plans. Zofran was added/p.r.n. 09/18 continue tx. monitor oversedation, 09/19 continue tx. 09/20 continue tx. dc on 09/21 Reason for continued inpatient stay Substantial Risk for: inability to function Time Spent With Patient Time: Total time managing care of this patient today ____ minutes.
[2023-09-21 10:30] VITALS: BP 144/65; PULSE 61; RESP 14; TEMP 36.1; O2SAT 97
[2023-09-21 10:34] VITALS: BP 144/65
[2023-09-21] MEDS: cloNIDine HCL 0.1 MG TABLET 0.05 MG PO ×3 (10:34→20:47)
[2023-09-21] MEDS: Acetaminophen 325 MG TABLET 650 MG PO ×3 (10:34→20:49)
[2023-09-21 10:36] VITALS: BP 144/63
[2023-09-21] MEDS: amLODIPine Besylate 5 MG TABLET PO (10:36)
[2023-09-21] MEDS: Omeprazole 20 MG CAPSULE.DR PO (10:37)
[2023-09-21 14:20] VITALS: BP 141/62
[2023-09-21 20:00] VITALS: BP 145/64; PULSE 68; RESP 18; O2SAT 98
[2023-09-21] MEDS: Mirtazapine 15 MG TABLET PO (20:46)
[2023-09-21] MEDS: Sennosides 8.6 MG TABLET 17.2 MG PO (20:46)
[2023-09-21] MEDS: Atorvastatin Calcium 20 MG TABLET PO (20:46)
[2023-09-21 20:47] VITALS: BP 145/64
[2023-09-21] MEDS: Melatonin 3 MG TABLET 6 MG PO (20:49)
[2023-09-22 08:00] VITALS: BP 117/58; PULSE 67; RESP 18; TEMP 36.3; O2SAT 99
[2023-09-22 08:25] VITALS: BP 117/58
[2023-09-22] MEDS: cloNIDine HCL 0.1 MG TABLET 0.05 MG PO (08:25)
[2023-09-22 08:26] VITALS: BP 117/58
[2023-09-22] MEDS: amLODIPine Besylate 5 MG TABLET PO (08:26)
[2023-09-22] MEDS: Omeprazole 20 MG CAPSULE.DR PO (08:27)
[2023-09-22] MEDS: Acetaminophen 325 MG TABLET 650 MG PO (08:27)
--- NOTE | 2023-09-22 10:32 | P.DS_ITS ---
DS: Providers Provider Date of Service: 09/22/23 Date of admission: 09/09/23 16:27 Date of discharge: 09/22/23 Primary care physician: Nonstaff Physician Consults: 09/09/23 21:46 Consult to Hospitalist Routine Comment: Consulting Provider: Hospitalist Reason For Exam: admission physical Discharging clinician: Lorena Monroy DS: Diagnosis Discharge Diagnosis (1) Major neurocognitive disorder due to Alzheimer's disease, with behavioral disturbance: Status: Acute DS: Medications Discharge Medications Home Medications: Previous Rx's ?Medication ?Instructions ?Recorded acetaminophen 325 mg tablet 650 mg (2 x 325 mg) PO TID #0 tabs 09/22/23 amlodipine 5 mg tablet 5 mg PO DAILY #0 tabs 09/22/23 atorvastatin 20 mg tablet 20 mg PO BEDTIME #0 tabs 09/22/23 clonazepam 0.125 mg disintegrating 0.25 mg (2 x 0.125 mg) PO BID #0 09/22/23 tablet tabs clonidine HCl 0.1 mg tablet 0.05 mg PO TID #0 tabs 09/22/23 melatonin 3 mg tablet 6 mg (2 x 3 mg) PO BEDTIME PRN 09/22/23 Sleep #0 tabs mirtazapine 15 mg tablet 15 mg PO BEDTIME #0 tabs 09/22/23 olanzapine 10 mg disintegrating 5 mg (1/2 x 10 mg) translingual 09/22/23 tablet Q6H PRN agitation #0 tabs omeprazole 20 mg capsule,delayed 20 mg PO DAILY@0630 #0 caps 09/22/23 release sennosides 8.6 mg tablet (Senna 17.2 mg (2 x 8.6 mg) PO BEDTIME #0 09/22/23 Lax) tabs tramadol 50 mg tablet 50 mg PO BID PRN Pain, 09/22/23 Moderate(Pain Scale 4-6) #0 tabs Mental Status Exam Mental Status Exam Narrative: Pt sitting in wheelchair, appears anxious. holding doll. unable to verbalize reason for anxious/dysphoric mood. Not oriented to place, situation or month. Data Data Completed and Pending Completed studies during hospitalization [Text1]: 09/17/23 11:58 Hold Purple Top SEE NOTE Sodium 143 Potassium 4.5 D Chloride 112 H Carbon Dioxide 23 Anion Gap 13 BUN 45 H Creatinine 1.16 Estim Creat Clear Calc 28.2 Estimated GFR 44 Random Glucose 114 Calcium 9.1 Total Bilirubin 0.5 AST 21 ALT 15 Alkaline Phosphatase 57 Total Protein 6.4 L Albumin 3.6 Imaging Diagnostic Imaging Impressions Hip X-Ray 09/15/23 15:53 IMPRESSION: Normal pelvis and hips. Head CT 09/15/23 17:04 IMPRESSION: No acute intracranial pathology. Moderate diffuse brain parenchymal volume loss and mild chronic white matter microangiopathy. DS: Summary Hospital Course Hospital Course: Patient is an 87 year old female with history of dementia, no prior MH issues noted, who was transported from [facility] for IP admission. Per initial assessment, patient has been living at group home [facility] for the past year. She was sent to ER due worsening agitation and emotional lability, had been hostile toward staff throwing items at them and had absconded from her unit. She is noted to have recently been started on citalopram 10 mg for behavioral changes, but unclear when this was. She had an initial medical work-up in the ED with a largely unremarkable physical examination and lab work CBC, BMP significant for elevated BUN 28, creatinine 1.4 and Cl 111, and low bicarb 18 as well as anemia 10.7/ 32.0 and was started on Keflex for UTI. She was also noted to have experienced increased agitation when she first arrived at [facility] ED, threatening to bite staff and hitting staff, ripping things off wall, not redirectable and required chemical and physical restraints until she could be evaluated for possible [facility]ierra psych admission. She has not been able to provide much history, it was noted that she currently has 4 children, and her son Edison is involved in her care. Patient seen this morning, she's on a 1:1 with sitter present. Appears in no acute distress, lying comfortably in bed. Is alert and oriented to self. Denies any pain issues. Says she does not know what is happening. Reports mood as I cant tell and when asked about how she slet last night says I just laid on the ground but in fact was in bed all night asleep. She denies any pain issues. She was pleasant but confused and unable to provide much history. Medical Evaluation Reviewed: Hospitalist Severino Pending HOSPITAL COURSE On the unit, pt was admitted on CV signed by invoked HCP. Pt presented as dysphoric, anxious. However, she did not have episodes of aggression towards self or others. She had been on depakote for mood stabilization but per son limited change in anxious/dysphoric mood. She was started on low dose of clonazepam, which did seem to help with anxious mood. She was also started on low dose of clonidine also for anxious, dysphoric mood secondary to dementia. At baseline, pt is not oriented to situation, month, year. Her dementia is advanced and in late stages. Her BP initially was elevated SBP in 180's. She was restarted on amlodipine which was titrated to 5mg po daily. She had one unwitnessed fall. Head CT and Hip XR were completed. No hip fracture. No signs of intracraneal bleeding noted. No acute changes in mentation nor focal deficit noted. She was sleeping well for the most part. She did have few niht with less sleep, but no agitation nor combative behaviors. Status at Discharge Cognitive/behavioral status at discharge: pt with somewhat dysphoric affect. Not oriented to month, situation, year. She has very advanced dementia. No aggression towards self or others. Functional status at discharge: wheelchair bound Overall status at discharge: patient is back to baseline Time Spent with Patient Time attestation: Total time managing care of this patient today _35___ minutes. Time spent: Greater than 30 minutes Discharge Plan Discharge Anticipated Discharge Date/Time: 09/22/23 10:13 Patient Disposition: Home, Self-Care Discharge Diagnosis: major neurocognitive disorder Discharge Medications: New sennosides [Senna Lax] 8.6 mg Tablet 17.2 mg PO BEDTIME Qty: 0 0RF clonidine HCl 0.1 mg Tablet 0.05 mg PO TID Qty: 0 0RF Protocol: Hold for SBP< HOLD for SBP < : 90 acetaminophen 325 mg Tablet 650 mg PO TID Qty: 0 0RF atorvastatin 20 mg Tablet 20 mg PO BEDTIME Qty: 0 0RF melatonin 3 mg Tablet 6 mg PO BEDTIME PRN (Reason: Sleep) Qty: 0 0RF amlodipine 5 mg Tablet 5 mg PO DAILY Qty: 0 0RF Protocol: Hold for SBP< HOLD for SBP < : 90 tramadol 50 mg Tablet 50 mg PO BID PRN (Reason: Pain, Moderate(Pain Scale 4-6)) Qty: 0 0RF olanzapine 10 mg Tablet,Disintegrating 5 mg translingual Q6H PRN (Reason: agitation) Qty: 0 0RF omeprazole 20 mg Capsule,Delayed Release(Dr/Ec) 20 mg PO DAILY@0630 Qty: 0 0RF mirtazapine 15 mg Tablet 15 mg PO BEDTIME Qty: 0 0RF clonazepam 0.125 mg Tablet,Disintegrating 0.25 mg PO BID Qty: 0 0RF Discontinued atorvastatin 20 mg tablet 20 mg PO DAILY trazodone 50 mg tablet 50 mg PO BEDTIME PRN (Reason: Insomnia) citalopram 10 mg tablet 10 mg PO DAILY donepezil 10 mg tablet 10 mg PO DAILY amlodipine 2.5 mg tablet 2.5 mg PO DAILY buspirone 7.5 mg tablet 7.5 mg PO TID mirtazapine 15 mg tablet 15 mg PO BEDTIME divalproex 125 mg capsule, delayed rel sprinkle 500 mg PO BID Discharge Orders: Discharge Order (Routine); Ordered 09/22/23 Ordered By: Lorena Monroy Diet: Regular diet Activity on Discharge: As tolerated Stand Alone Forms: Patient Portal Discharge page Print Language: Ghanaian Care Plan Goals: 1. Maintain mood 2. no aggression towards self or others Health Concerns: follow up with pcp for routine care- Plan of Treatment: 1. Take medications as prescribed 2. go to nearest ED or call 911 in event of emergency Assessment: pt with somewhat dysphoric affect. Not oriented to month, situation, year. She has very advanced dementia. No aggression towards self or others.
--- NOTE | 2023-09-22 11:57 | PC.NURSE ---
Patient discharged at 1155 by stretcher to return to [facility]. All discharge reports given to transporters. Patient unable to understand discharge instructions d/t mental status. Patient was calm and cooperative upon discharge. N2N called to facility.
== END 2023-09-22 11:55 | disposition skilled nursing facility (03) | DRG 880 ==
PROVIDERS: Psychiatry & Neurology Psychiatry; Social Worker; Student in an Organized Health Care Education/Training Program; Admitting Provider Psychiatry & Neurology Psychiatry; Visit Provider Psychiatry & Neurology Psychiatry
DX: F41.1 Generalized anxiety disorder (principal); N39.0 Urinary tract infection, site not specified; F02.818 Dementia in other diseases classified elsewhere, unspecified severity, with other behavioral disturbance; G30.9 Alzheimer's disease, unspecified; Z79.899 Other long term (current) drug therapy
CPT/HCPCS: 36415; 70450; 73522; 80053; 80061; 82140; 82565; J2060; J2359

== ENCOUNTER → 2023-09-09 16:27 | Outpatient (BNV) | payer MEDICARE, SELFPAY | PROVIDERS: Admitting Provider Psychiatry & Neurology Psychiatry; Visit Provider Student in an Organized Health Care Education/Training Program | DX: Z02.2 Encounter for examination for admission to residential institution (principal) | CPT/HCPCS: 99429; 99499 ==

== ENCOUNTER → 2023-09-09 16:27 | Outpatient (BNV) | payer MEDICARE, OTHER, SELFPAY | PROVIDERS: Admitting Provider Psychiatry & Neurology Psychiatry; Visit Provider Social Worker | DX: G30.9 Alzheimer's disease, unspecified (principal); F02.818 Dementia in other diseases classified elsewhere, unspecified severity, with other behavioral disturbance | CPT/HCPCS: 90792; 99231; 99232; 99239 ==